=== PATIENT | female | born 1945 | race Caucasian/White ===

== ENCOUNTER 2022-10-02 14:36 | Outpatient (REF) | payer MEDICARE, SELFPAY ==
[2022-10-02 15:17] LABS: MANUAL DIFF FLAG NO
[2022-10-02 15:33] LABS: Basophils Absolute Auto 0.1 X10*3/uL (0.0-0.2); Basophils Percent Auto 0.7 % (0-2); Eosinophils Absolute Auto 0.2 X10*3/uL (0.0-0.4); Eosinophils Percent Auto 2.2 % (0-4); Hematocrit 42.2 % (37.0-47.0); Hemoglobin 13.7 g/dl (12.0-16.0); Imm Gran Abs Auto 0.02 X10*3/uL (0.00-0.03); Imm Gran Pct Auto 0.3 % (0.0-0.4); Lymphocytes Absolute Auto 1.4 X10*3/uL (1.2-4.9); Lymphocytes Percent Auto 20.5 % (20-40); Mean Corpuscular HGB Conc 32.5 g/dl (31.0-35.0); Mean Corpuscular Hemoglobin 29.5 pg (27.0-33.0); Mean Corpuscular Volume 90.8 fL (80.0-98.0); Mean Platelet Volume 9.4 fL (9.4-12.3); Monocytes Absolute Auto 0.4 X10*3/uL (0.1-1.2); Monocytes Percent Auto 5.7 % (2-11); Neutrophils Absolute Auto 4.7 x10*3/uL (2.0-8.3); Neutrophils Percent Auto 70.6 % (45-73); Platelet Count 300 X10*3/uL (160-400); Red Blood Count 4.65 X10*6/uL (4.20-5.50); Red Cell Distribution Width 12.6 % (11.0-16.0); White Blood Count 6.7 X10*3/uL (4.8-10.8)
[2022-10-02 15:34] LABS: Appearance Urine Clear; Color Urine Yellow; Glucose Urine UA Negative (Negative); Leukocyte Esterase Urine Small (1+) (Negative); Nitrite Urine Negative (Negative); PH 5.5 (5.0-9.0); UMIC TRIGGER UA YES; Urine Blood Small (1+) (Negative); Urine Ketones Trace mg/dL (Negative); Urine Protein Negative (Neg-Trace)
[2022-10-02 15:53] LABS: Bacteria Urine None Seen (None Seen); Hyaline Casts Urine 0-2 /LPF (0-2); RBC Urine 0-2 /HPF (0-2); Squamous Epithelial Cell Urine 0-2 /HPF (0-2)
[2022-10-02 16:26] LABS: Alanine Aminotransferase 20 U/L (0-31); Albumin Level 4.8 g/dL (3.5-5.0); Alkaline Phosphatase 56 U/L (39-117); Anion Gap 17 (12-20); Aspartate Amino Transferase 23 U/L (5-31); Bilirubin Total 1.9 mg/dL (0.0-1.0); Blood Urea Nitrogen 19 mg/dL (9-16); Calcium 9.6 mg/dL (8.4-10.2); Carbon Dioxide 26 mmol/L (22-29); Chloride 100 mmol/L (96-108); Cholesterol 207 mg/dL; Estimated Glomerular Filt Rate > 60; Glucose Random 85 mg/dL (60-115); HDL Cholesterol 83 mg/dL; LDL Cholesterol Calculated 110 mg/dl; Potassium 3.8 mmol/L (3.3-5.1); Sodium 139 mmol/L (135-145); Triglycerides 74 mg/dL
[2022-10-02 16:40] LABS: Thyroid Stimulating Hormone 2.06 uIU/mL (0.32-4.0)
[2022-10-02 16:41] LABS: TSH reflex Free T4 2.08 uIU/mL (0.32-4.0)
[2022-10-02 16:55] LABS: Folate 11.2 ng/mL (> or = 4.0); Vitamin B12 701 pg/mL (200-900)
== END 2022-10-02 14:37 | disposition home or self-care (01) ==
LOC: HO.LAB 14:36
PROVIDERS: PCP Internal Medicine; Visit Provider Internal Medicine
DX: N30.10 Interstitial cystitis (chronic) without hematuria (principal); G62.9 Polyneuropathy, unspecified
CPT/HCPCS: 36415; 80053; 80061; 81001; 82607; 82746; 84443; 85025; 87086

== ENCOUNTER 2023-04-17 15:44 | Outpatient (AMB) | payer MEDICARE, SELFPAY ==
--- NOTE | 2023-04-17 15:57 | A.OFFPC_ITS ---
Vital Signs 04/17/23 16:03 Height 5 ft 4 in Weight 108 lb 4 oz BMI 18.6 BP 136/80 Blood Pressure Location Lt brachial Position Sitting Pulse 69 Pulse Source Pulse Oximeter Pulse Oximetry (%) 100 Oxygen Delivery Method Room Air Intake Visit Reasons: New Patient/ Neuropathy Allergies No Known Allergies Allergy (Verified 04/17/23 16:04) Medication List - Last Reconciled 04/17/23 by KIMBERLY Gusman [asvanced nerve support PO .qd] diphenhydramine HCl (Benadryl Allergy) 25 mg PO BEDTIME PRN ibuprofen (IBU-200) 200 mg PO Q6H PRN [PEA-500 PO .qd] Tobacco use date assessed: 04/17/23 Fall risk assessment: No Falls in past year Last assessed Fall Risk: 04/17/23 Dental Screening Dental Screen Date: 04/17/23 Did you have a dental visit in the last 12 months?: Yes Did you have a dental problem in the last 6 months where you did not have access to dental care?: No Was dental information given to patient?: Patient has dentist HPI New Patient/ Neuropathy HPI Details pt reports never having a colon screen. pt is interested in the cologuard, will order. Pt has a severe case of IC. She last saw her urologist approx 2 years ago (according to pt). Highly recommended she follows up with her urologist, pt had to leave the room several times to go to the bathroom. Pt reports after being diagnosed with IC approx 7 years ago, she developed neuropathy. unfortunately, pt was not able to stay for full exam and questions, due to IC flare. will order emg.neuropathy testing. Pt does reports intermittent lower back pain, but denies shooting pains down her BLE from her back. NOTE: pt reported last seeing a PCP last year. [facility] Medical History (Updated 04/17/23 @ 16:59 by KIMBERLY Gusman) Endometriosis Surgical History History of appendectomy Social History Housing: House Alcohol intake: never Patient Tobacco Use Status: Never used Tobacco e-Cigarette/Vaping Use: Never Used Second Hand Smoke Exposure: No Current occupational status: retired Cognitive needs: No Hearing needs: No Vision needs: No Questionnaire PHQ-9 Over the last 2 weeks, how often have you been bothered by any of the following problems? 1. Little interest or pleasure in doing things: several days 2. Feeling down, depressed, or hopeless: not at all 3. Trouble falling or staying asleep, or sleeping too much: nearly every day 4. Feeling tired or having little energy: nearly every day 5. Poor appetite or overeating: not at all 6. Feeling bad about yourself - or that you are a failure or have let yourself or your family down: several days 7. Trouble concentrating on things, such as reading the newspaper or watching television: not at all 8. Moving or speaking so slowly that other people could have noticed. Or the opposite - being so fidgety or restless that you have been moving around a lot more than usual: not at all 9. Thoughts that you would be better off or of hurting yourself in some way: not at all Total score: 8 Depression Screening Interpretation: Negative 11274 - PHQ-9 Billing: Yes Source: Developed by Drs. Manjinder Perez, Jessica Caceres, Jeff Salvador and colleagues, with an educational cristhian from [employer]. Thrive Questionnaire Date Thrive assessed: 04/17/23 I am a: Patient What is your living situation today?: I have a steady place to live Within the past 12 months, did the food you bought not last and you didn't have the money to get more?: Never true Within the past 12 months, did you worry whether your food would run out before you got money to buy more?: Never true Do you have trouble paying for medicines?: Yes Do you have trouble getting transportation to medical appointments?: No Do you have trouble paying your heating and electricity bill?: No Do you have trouble taking care of your child, family member or friend?: No Do you have trouble with day-to-day activities such as bathing, preparing meals, shopping, managing finances, etc.?: Yes Are you currently unemployed and looking for a job?: No Are you interested in more education?: No Currently or been in a relationship where the following occur: no concerns reported JESSI-7 AMB Questionnaire JESSI-7 Date JESSI - 7 assessed: 04/17/23 Feeling nervous, anxious, or on edge: 1 = Several days Not being able to stop or control worryin = Several days Worrying too much about different things: 1 = Several days Trouble relaxin = Several days Being so restless that it is hard to sit still: 0 = Not at all Becoming easily annoyed or irritable: 0 = Not at all Feeling afraid as if something awful might happen: 0 = Not at all Total JESSI-7 score (0-4 normal; 5-9 mild; 10-14 moderate; 15-21 severe): 4 Source: Developed by Drs. Manjinder Perez, Jessica Caceres, Jeff Salvador and colleagues, with an educational cristhian from [employer]. JESSI-7 Assessment Billing JESSI-7 Assessment Tool: JESSI-7 Assessment 58337 Physical exam (Primary Care) Vital Signs: Last Vital Signs Pulse 69 04/17/23 16:03 BP 136/80 04/17/23 16:03 Pulse Ox 100 04/17/23 16:03 Oxygen Delivery Method Room Air 04/17/23 16:03 BMI result Body Mass Index 18.6 Tobacco/Smoking Status: Tobacco use Status Tobacco use date assessed 04/17/23 04/17/23 16:15 Patient Tobacco Use Status Never used Tobacco 04/17/23 16:15 e-Cigarette/Vaping Use Never Used 04/17/23 16:15 PHQ-9: PHQ-9 Score PHQ-9: Total score 8 04/17/23 16:27 Depression Screening Interpretation: Negative Thrive Assessment: Date of Thrive Assessment Date Thrive assessed 04/17/23 04/17/23 16:21 Currently or been in a relationship where the following occur: no concerns reported Const Other: skinny stature General: cooperative Orientation/consciousness: patient oriented x3 Resp Effort & Inspection: normal respiratory effort Auscultation: clear to auscultation bilaterally Cardio Rate: regular rate Rhythm: regular rhythm Heart sounds: S1 normal heart sound present and S2 normal heart sound present Back/Spine/Pelvis Other: no lower back pain with palpation of lumbar spine and transverse back Neuro Other: + sensation with use of monofilament General: patient oriented x3 Motor exam (neuro): 5/5 motor strength present throughout Extrem Other: no edema bilat Psych Appearance: grossly normal Mental Status: mental status grossly normal Speech and movement: Normal speech and movement present Affect: normal affect Attitude: cooperative Thought process: Normal thought process present Thought content: Normal thought content present Insight: Good insight present (Psych) Judgement: Good judgement present (Psych) Assessment and Plan Assessment & Plan (1) Screening, anemia, deficiency, iron: Code(s): Z13.0 - Encounter for screening for diseases of the blood and blood-forming organs and certain disorders involving the immune mechanism (2) Vitamin D deficiency: Code(s): E55.9 - Vitamin D deficiency, unspecified (3) Postmenopausal: Code(s): Z78.0 - Asymptomatic menopausal state (4) Lower extremity neuropathy: Code(s): G57.90 - Unspecified mononeuropathy of unspecified lower limb Orders: Orders Comprehensive Roberts. Panel Fast Today Z13.220 - Encounter for screening for lipoid disorders, Z13.29 - Encounter for screening for other suspected endocrine disorder Lipid Panel Today Z13.220 - Encounter for screening for lipoid disorders, Z13.29 - Encounter for screening for other suspected endocrine disorder TSH reflex Free T4 Today Z13.220 - Encounter for screening for lipoid disorders, Z13.29 - Encounter for screening for other suspected endocrine disorder Complete Blood Count Auto Diff Today Z13.0 - Encounter for screening for diseases of the blood and blood-forming organs and certain disorders involving the immune mechanism UA CC w/rflx Micro + Cult Today Z13.220 - Encounter for screening for lipoid disorders, Z13.29 - Encounter for screening for other suspected endocrine disorder Vitamin D 25-OH Total Today E55.9 - Vitamin D deficiency, unspecified XR DEXA axial skeleton Today Z78.0 - Asymptomatic menopausal state MM screening mammo BI Today Z12.31 - Encounter for screening mammogram for malignant neoplasm of breast NE electromyogram (EMG) Today G57.90 - Unspecified mononeuropathy of unspecified lower limb NE nerve conduction velocity Today G57.90 - Unspecified mononeuropathy of unspecified lower limb Vitamin B12 and Folate Today G57.90 - Unspecified mononeuropathy of unspecified lower limb Vitamin B6 Today G57.90 - Unspecified mononeuropathy of unspecified lower limb Protein Electrophoresis, Serum Today G57.90 - Unspecified mononeuropathy of unspecified lower limb Immunofixation Pnl, Serum Today G57.90 - Unspecified mononeuropathy of unspecified lower limb Referrals Cologuard Test Z12.11 - Encounter for screening for malignant neoplasm of colon, Z12.12 - Encounter for screening for malignant neoplasm of rectum Coding Level of Care Code New Pt Level 3 (44656) Diagnoses Screening, anemia, deficiency, iron Z13.0 Vitamin D deficiency E55.9 Postmenopausal Z78.0 Lower extremity neuropathy G57.90 Additional Codes JESSI-7 Assessment Billing - JESSI-7 Assessment Tool: JESSI-7 Assessment 20660 ([id number])
[2023-04-17 16:03] VITALS: BP 136/80; PULSE 69; O2SAT 100; BMI 18.6
== END 2023-04-17 17:08 | disposition home or self-care (01) ==
PROVIDERS: Visit Provider Nurse Practitioner Family
DX: Z13.0 Encounter for screening for diseases of the blood and blood-forming organs and certain disorders involving the immune mechanism (principal); E55.9 Vitamin D deficiency, unspecified; Z78.0 Asymptomatic menopausal state; G57.90 Unspecified mononeuropathy of unspecified lower limb
CPT/HCPCS: 99203

== ENCOUNTER 2023-05-06 12:38 | Outpatient (REF) | payer MEDICARE, SELFPAY ==
[2023-05-06 16:00] LABS: MANUAL DIFF FLAG NO
[2023-05-06 16:07] LABS: Basophils Percent Auto 0.6 % (0-2); Eosinophils Absolute Auto 0.2 X10*3/uL (0.0-0.4); Eosinophils Percent Auto 3.1 % (0-4); Hematocrit 42.8 % (37.0-47.0); Hemoglobin 13.9 g/dl (12.0-16.0); Imm Gran Abs Auto 0.02 X10*3/uL (0.00-0.03); Imm Gran Pct Auto 0.3 % (0.0-0.4); Lymphocytes Absolute Auto 1.7 X10*3/uL (1.2-4.9); Mean Corpuscular HGB Conc 32.5 g/dl (31.0-35.0); Mean Corpuscular Hemoglobin 29.8 pg (27.0-33.0); Mean Corpuscular Volume 91.8 fL (80.0-98.0); Mean Platelet Volume 10.2 fL (9.4-12.3); Monocytes Absolute Auto 0.4 X10*3/uL (0.1-1.2); Monocytes Percent Auto 6.3 % (2-11); Neutrophils Absolute Auto 4.1 x10*3/uL (2.0-8.3); Neutrophils Percent Auto 63.7 % (45-73); Platelet Count 308 X10*3/uL (160-400); Red Blood Count 4.66 X10*6/uL (4.20-5.50); White Blood Count 6.4 X10*3/uL (4.8-10.8)
[2023-05-06 16:36] LABS: Alanine Aminotransferase 18 U/L (0-31); Albumin Level 4.7 g/dL (3.5-5.0); Alkaline Phosphatase 44 U/L (39-117); Anion Gap 13 (12-20); Aspartate Amino Transferase 21 U/L (5-31); Bilirubin Total 1.4 mg/dL (0.0-1.0); Blood Urea Nitrogen 17 mg/dL (9-16); Calcium 9.7 mg/dL (8.4-10.2); Carbon Dioxide 25 mmol/L (22-29); Chloride 105 mmol/L (96-108); Cholesterol 220 mg/dL (<200); Estimated Glomerular Filt Rate > 60; Glucose Fasting 85 mg/dL (60-99); HDL Cholesterol 85 mg/dL (>40); LDL Cholesterol Calculated 121 mg/dL (<100); Sodium 139 mmol/L (135-145); Total Protein 7.1 g/dL (6.5-8.0); Triglycerides 70 mg/dL (<150)
[2023-05-06 16:46] LABS: TSH reflex Free T4 2.37 uIU/mL (0.32-4.0); Vitamin D 25-OH Total 57.6 ng/mL (>30)
[2023-05-06 16:56] LABS: Folate 8.6 ng/mL (> or = 4.0); Vitamin B12 672 pg/mL (200-900)
[2023-05-09 10:57] LABS: Prot Elec - Albumin 4.9 g/dL (3.8-4.8); Prot Elec - Alpha1 0.3 g/dL (0.2-0.3); Prot Elec - Alpha2 0.7 g/dL (0.5-0.9); Prot Elec - Beta 1 0.5 g/dL (0.4-0.6); Prot Elec - Beta 2 0.3 g/dL (0.2-0.5); Prot Elec - Gamma 0.7 g/dL (0.8-1.7); Prot Elec - Total Protein 7.3 g/dL (6.1-8.1)
[2023-05-14 09:23] LABS: IgA 67 mg/dL (70-320); IgG 776 mg/dL (600-1540); IgM 48 mg/dL (50-300)
== END 2023-05-06 12:39 | disposition home or self-care (01) ==
LOC: HO.HMGCLDS 12:38
PROVIDERS: PCP Nurse Practitioner Family; Visit Provider Nurse Practitioner Family
DX: Z13.220 Encounter for screening for lipoid disorders (principal); Z13.29 Encounter for screening for other suspected endocrine disorder; Z13.0 Encounter for screening for diseases of the blood and blood-forming organs and certain disorders involving the immune mechanism; E55.9 Vitamin D deficiency, unspecified; G57.90 Unspecified mononeuropathy of unspecified lower limb; R63.4 Abnormal weight loss; E78.5 Hyperlipidemia, unspecified
CPT/HCPCS: 36415; 80053; 80061; 82306; 82607; 82746; 82784; 84165; 84207; 84443; 85025; 86334

== ENCOUNTER 2023-05-07 13:47 | Outpatient (REF) | payer MEDICARE, SELFPAY ==
[2023-05-07 16:27] LABS: Appearance Urine Clear; Color Urine Yellow; Glucose Urine UA Negative (Negative); Leukocyte Esterase Urine Moderate (2+) (Negative); Nitrite Urine Negative (Negative); PH 6.5 (5.0-9.0); Specific Gravity - Urine <= 1.005 (1.005-1.025); UMIC TRIGGER UACC YES; Urine Blood Negative (Negative); Urine Ketones Negative (Negative); Urine Protein Negative (Neg-Trace)
[2023-05-07 16:30] LABS: Bacteria Urine None Seen (None Seen); Hyaline Casts Urine 0-2 /LPF (0-2); RBC Urine 0-2 /HPF (0-2); Squamous Epithelial Cell Urine 0-2 /HPF (0-2); UACC Culture Trigger YES
[2023-05-12 14:33] LABS: Vitamin B6 90.7 ng/mL (2.1-21.7)
== END 2023-05-07 13:48 | disposition home or self-care (01) ==
LOC: HO.HMGCLDS 13:47
PROVIDERS: PCP Nurse Practitioner Family; Visit Provider Nurse Practitioner Family
DX: G57.90 Unspecified mononeuropathy of unspecified lower limb (principal); R82.90 Unspecified abnormal findings in urine
CPT/HCPCS: 36415; 81001; 84207; 87086

== ENCOUNTER 2023-05-14 13:59 | Outpatient (REF) | payer MEDICARE, SELFPAY ==
--- NOTE | ~2023-05-14 | MM_ITS ---
EXAMINATION: MM SCREENING DIGITAL BREAST TOMOSYNTHESIS, BILATERAL CLINICAL INFORMATION: Screening. Asymptomatic. COMPARISON: Mammography: 11/27/2016, 06/13/2015, 04/02/2014, 03/29/2014, 11/06/2012, and dating back to 2008. ([facility] [place]) TECHNIQUE: Digital breast tomosynthesis is performed in both the craniocaudal and mediolateral oblique views along with computer-aided detection (CAD). Synthesized 2D images are generated from the tomosynthesis. FINDINGS: There are scattered areas of fibroglandular density (ACR BI-RADS breast composition Category b). In the left breast, there is a focal asymmetry in the lower outer quadrant, middle one third, for which diagnostic views are recommended including spot compression 3-D views in the CC, MLO projections, as well as a full-field left mediolateral view. Ultrasound should be scheduled should the finding persist. Otherwise, no suspicious findings noted in the right breast. MM/MM tomosynthesis screening BI IMPRESSION: Focal asymmetry in left breast lower outer quadrant as detailed, for which diagnostic views are recommended as described above. No suspicious finding in the right breast. ASSESSMENT: BI-RADS BI-RADS 0 - Incomplete: Needs additional Imaging. RECOMMENDATION: 1. Additional views of the left breast. 2. Targeted left ultrasound if warranted after review of the additional views. 3. Radiology department staff will contact the patient for additional imaging. Additional Imaging required This examination should not preclude the clinical evaluation of a suspicious palpable abnormality.
--- NOTE | ~2023-05-14 | MM_ITS ---
EXAMINATION: BONE DENSITOMETRY CLINICAL INDICATION: Asymptomatic menopausal state. COMPARISON: Baseline BD dated 11/06/2012. TECHNIQUE: Using a [employer] DXA System (software version: 13.1) manufactured by [employer], dual-energy x-ray absorptiometry was performed of the lumbar spine and left hip. The images are of good technical quality. Summary results are attached. FINDINGS: LEFT FEMUR, NECK: Current: BMD 0.682 g/cm2, Z-score -0.2, T-score -2.6, osteoporosis. Baseline: BMD 0.899 g/cm2. LEFT FEMUR, TOTAL: Current: BMD 0.620 g/cm2, Z-score -0.8, T-score -3.1, osteoporosis, 29.1% decrease from baseline (<5% change is not significant). Baseline: BMD 0.875 g/cm2. AP SPINE L1-L4 (excluding L2): The data of L1-L4 has been changed to exclude the L2 vertebral body, because degenerative sclerosis at this level may cause overestimation of lumbar spine density. Current: BMD 1.090 g/cm2, Z-score 1.7, T-score -0.7, normal, 5.0% increase from baseline (<5% change is not significant). Baseline: BMD 1.038 g/cm2. IDENTIFIED RISK FACTORS: Low body weight, low calcium intake, menopause, left oophorectomy. HISTORY OF FRACTURE: None listed. MEDICATIONS: Calcium supplements or multivitamin, vitamin D. MM/XR DEXA axial skeleton IMPRESSION: 1. DIAGNOSIS: Osteoporosis based on the lowest T-score value of -3.1 in the total femur applying World Health Organization criteria. 2. 10-YEAR FRACTURE RISK PREDICTION, FRAX: According to the guidelines, FRAX calculation should only be performed on patients in the osteopenia bone density category. Therefore, FRAX was not performed on this patient. 3. Treatment Recommendations: NOF guidelines recommend consideration for treatment in postmenopausal women and men age 50 and older presenting with the following: -A hip or vertebral (clinical or morphometric) fracture. -T-score less than or equal to -2.5 at the femoral neck or spine after appropriate evaluation to exclude secondary causes. -Low bone mass at the hip or spine and a 10-year fracture probability by FRAX of greater than or equal to 3% for hip fracture or greater than or equal to 20% for major osteoporotic fracture based on the [place] adapted WHO algorithm. 4. Other Recommendations: All treatment decisions require clinical judgment and consideration of individual patient factors, including patient preferences, comorbidities, previous drug use, risk factors not captured in the FRAX model (e.g. frailty, falls, vitamin D deficiency, increased bone turnover, interval significant decline in bone density) and possible under or overestimation of fracture risk by FRAX. Additional medical evaluation for secondary cause of low bone mineral density may be appropriate. FUTURE SCAN RECOMMENDATION: People with diagnosed cases of osteoporosis or at high risk for fracture should have regular bone mineral density tests. For patients eligible for Medicare, routine testing is allowed once every 2 years. The testing frequency can be increased to one year for patients who have rapidly progressing disease, those who are receiving or discontinuing medical therapy to restore bone mass, or have additional risk factors.
== END 2023-05-14 14:00 | disposition home or self-care (01) ==
LOC: HO.MAMMO 13:59
PROVIDERS: PCP Nurse Practitioner Family; Visit Provider Nurse Practitioner Family
DX: Z12.31 Encounter for screening mammogram for malignant neoplasm of breast (principal); Z13.820 Encounter for screening for osteoporosis; Z78.0 Asymptomatic menopausal state
CPT/HCPCS: 77063; 77067; 77080

== ENCOUNTER → 2023-05-14 15:00 | Outpatient (BNV) | payer MEDICARE, SELFPAY | PROVIDERS: PCP Nurse Practitioner Family; Visit Provider Radiology Diagnostic Radiology | DX: Z12.31 Encounter for screening mammogram for malignant neoplasm of breast (principal) | CPT/HCPCS: 77063; 77067; 77080 ==

== ENCOUNTER 2023-05-22 13:47 | Outpatient (REF) | payer MEDICARE, SELFPAY ==
--- NOTE | 2023-05-22 13:50 | EMG_ITS ---
Chief complaint: Chronic feet numbness, diagnosed neuropathy in the past, unknown etiology Reason for referral: Evaluate for neuropathy Referred by: Aaron Mcqueen NP Procedure done: Bilateral lower extremity NCS/EMG Precautions and/or limitations: None The limb temperature was monitored continuously and remained between 32-36 degrees C during the performance of the NCS. Nerve Conduction Studies Anti Sensory Summary Table ?Stim Site NR Onset (ms) Norm Onset (ms) Peak (ms) Norm Peak (ms) O-P Amp (?V) Norm O-P Amp Site1 Site2 Delta-0 (ms) Dist (cm) Javier (m/s) Norm Javier (m/s) Left Sural Anti Sensory (Lat Mall) Calf ? 3.3 4.2 <4.0 18.8 >5.0 Calf Lat Mall 3.3 14.0 42 Right Sural Anti Sensory (Lat Mall) Calf ? 3.0 3.8 <4.0 0.3 >5.0 Calf Lat Mall 3.0 14.0 47 Motor Summary Table ?Stim Site NR Onset (ms) Norm Onset (ms) O-P Amp (mV) Norm O-P Amp iAmp (mV) Amp (1st) (%) Site1 Site2 Delta-0 (ms) Dist (cm) Javier (m/s) Norm Javier (m/s) Left Peroneal Motor (Ext Dig Brev) Ankle ? 4.5 <4.0 2.7 >2.5 3.6 100.0 Ankle Ext Dig Brev 4.5 0.0 B Fib ? 10.9 2.8 3.5 103.7 B Fib Ankle 6.4 31.0 48 >40 Poplt ? 12.3 2.6 3.2 96.3 Poplt B Fib 1.4 4.0 29 >40 Right Peroneal Motor (Ext Dig Brev) Ankle ? 4.5 <4.0 2.7 >2.5 3.5 100.0 Ankle Ext Dig Brev 4.5 0.0 B Fib ? 12.3 2.8 3.6 103.7 B Fib Ankle 7.8 31.5 40 >40 Poplt ? 12.7 2.8 3.6 103.7 Poplt B Fib 0.4 4.0 100 >40 Left Tibial Motor (Abd George Brev) Ankle ? 4.0 <5 13.7 >2.5 19.0 100.0 Ankle Abd George Brev 4.0 0.0 Knee ? 11.7 5.4 7.9 39.4 Knee Ankle 7.7 34.0 44 >40 Right Tibial Motor (Abd George Brev) Ankle ? 3.6 <5 8.9 >2.5 11.9 100.0 Ankle Abd George Brev 3.6 0.0 Knee ? 14.4 6.0 7.4 67.4 Knee Ankle 10.8 40.0 37 >40 EMG ?Side Muscle Nerve Root Ins Act Fibs Psw Amp Dur Poly Recrt Int Pat Comment Right AbdHallucis MedPlantar S1-2 Nml Nml Nml Nml Nml 0 Nml Complete Right AntTibialis Dp Br Peron L4-5 Nml Nml Nml Nml Nml 0 Nml Complete Right PostTibialis Tibial L5, S1 Nml Nml Nml Nml Nml 0 Nml Complete Right MedGastroc Tibial S1-2 Nml Nml Nml Nml Nml 0 Nml Complete Right VastusMed Femoral L2-4 Nml Nml Nml Nml Nml 0 Nml Complete Left AbdHallucis MedPlantar S1-2 Nml Nml Nml Nml Nml 0 Nml Complete Left AntTibialis Dp Br Peron L4-5 Nml Nml Nml Nml Nml 0 Nml Complete Left PostTibialis Tibial L5, S1 Nml Nml Nml Nml Nml 0 Nml Complete Left MedGastroc Tibial S1-2 Nml Nml Nml Nml Nml 0 Nml Complete Left VastusMed Femoral L2-4 Nml Nml Nml Nml Nml 0 Nml Complete FINDINGS: Right peroneal nerve showed prolonged distal latency, normal amplitude and normal conduction velocity. Right tibial nerve showed normal distal latency, normal amplitude and slow conduction velocity. Left peroneal nerve showed prolonged distal latency, normal amplitude and slow conduction velocity across the fibula. Right sural showed normal peak latency but small amplitude. Left sural showed prolonged peak latency. All other nerves tested were within normal. Concentric needle EMG was performed in selected muscles of the bilateral lower extremity. Study did not reveal signs of electric abnormalities as shown in the table below. IMPRESSION: 1. This is an abnormal study. 2. 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 3. There is no electrodiagnostic evidence for lumbosacral plexopathy, or lumbar radiculopathy. Thank you for your kind referral. Lali Forman MD, TALIA Board Certified, [place] [employer] and Rehabilitation (ABPMR) Board Certified, [place] Board of Electrodiagnostic Medicine (ABEM) CODIN [id number] x 2 MTDD
== END 2023-05-22 13:48 | disposition home or self-care (01) ==
LOC: HO.NEURO 13:47
PROVIDERS: PCP Nurse Practitioner Family; Referring Provider Nurse Practitioner Family; Visit Provider Internal Medicine
DX: G57.93 Unspecified mononeuropathy of bilateral lower limbs (principal)
CPT/HCPCS: 95886; 95909

== ENCOUNTER → 2023-05-22 13:50 | Outpatient (BNV) | payer MEDICARE, SELFPAY | PROVIDERS: PCP Nurse Practitioner Family; Referring Provider Nurse Practitioner Family; Visit Provider Physical Medicine & Rehabilitation | DX: G62.89 Other specified polyneuropathies (principal) | CPT/HCPCS: 95886; 95909 ==

== ENCOUNTER → 2023-06-04 13:39 | Outpatient (BNV) | payer MEDICARE, SELFPAY | PROVIDERS: PCP Nurse Practitioner Family; Visit Provider Internal Medicine | DX: D80.1 Nonfamilial hypogammaglobulinemia (principal) | CPT/HCPCS: 99204 ==

== ENCOUNTER 2023-06-18 14:29 | Outpatient (REF) | payer MEDICARE, SELFPAY | END 2023-06-18 14:30 | disposition home or self-care (01) | LOC: HO.MAMMO 14:29 | PROVIDERS: PCP Nurse Practitioner Family; Visit Provider Nurse Practitioner Family | DX: N64.89 Other specified disorders of breast (principal) | CPT/HCPCS: 76642; 77061; 77065 ==

== ENCOUNTER → 2023-06-18 15:00 | Outpatient (BNV) | payer MEDICARE, SELFPAY | PROVIDERS: PCP Nurse Practitioner Family; Visit Provider Radiology Diagnostic Radiology | DX: R92.312 Mammographic fatty tissue density, left breast (principal); R92.322 Mammographic fibroglandular density, left breast | CPT/HCPCS: 76642; 77061; 77065; G0279 ==

== ENCOUNTER 2023-08-19 13:58 | Outpatient (AMB) | payer MEDICARE, SELFPAY ==
--- NOTE | 2023-08-19 14:13 | MHC.PC.OV ---
Vital Signs 08/19/23 14:15 Height 5 ft 4 in Weight 108 lb BMI 18.5 BP 110/72 Blood Pressure Location Rt brachial Pulse 71 Pulse Source Pulse Oximeter Pulse Oximetry (%) 98 Oxygen Delivery Method Room Air Intake Visit Reasons: 4 Month follow up Allergies No Known Allergies Allergy (Verified 08/19/23 14:15) Tobacco use date assessed: 04/17/23 Fall risk assessment: 1 Fall in past year Last assessed Fall Risk: 08/19/23 HPI 4 Month follow up HPI Details Pt has a hx of IC. She reports doing well overall, seeing urology. She is interested in joining a support group for her IC as well. Pt reports ongoing neuropathy of her lower extremities, recommended she stop the vitamin B6 (toxic levels on blood work). Recommended alpha lipoic acid. Pt had recent EMG/nerve conduction testing which showed electrodiagnostic evidence for sensorimotor polyneuropathy, with both demyelinating and axonal features, no electrodiagnostic evidence for lumbosacral plexopathy, or lumbar radiculopathy. Already referred to neurology. Denies fever, chills, and dizziness. [facility] Medical History Endometriosis Surgical History History of left oophorectomy History of cholecystectomy History of appendectomy Family History Father Stomach cancer Mother Colon cancer Social History Household Members: None Housing: House Alcohol intake: never Patient Tobacco Use Status: Never used Tobacco e-Cigarette/Vaping Use: Never Used Second Hand Smoke Exposure: No service: No Current occupational status: retired Cognitive needs: No Hearing needs: No Vision needs: No Questionnaire Thrive Questionnaire Date Thrive assessed: 04/17/23 JESSI-7 AMB Questionnaire JESSI-7 Date JESSI - 7 assessed: 04/17/23 Source: Developed by Drs. Manjinder Perez, Jessica Caceres, Jeff Salvador and colleagues, with an educational cristhian from [employer]. Review of Systems Const Reports as per HPI Physical exam (Primary Care) Vital Signs: Last Vital Signs Pulse 71 08/19/23 14:15 BP 110/72 08/19/23 14:15 Pulse Ox 98 08/19/23 14:15 Oxygen Delivery Method Room Air 08/19/23 14:15 BMI result Body Mass Index 18.5 Tobacco/Smoking Status: Tobacco use Status Tobacco use date assessed 04/17/23 08/19/23 14:14 Patient Tobacco Use Status Never used Tobacco 08/19/23 14:14 e-Cigarette/Vaping Use Never Used 08/19/23 14:14 Thrive Assessment: Date of Thrive Assessment Date Thrive assessed 04/17/23 08/19/23 14:14 Const General: cooperative Orientation/consciousness: patient oriented x3 Resp Effort & Inspection: normal respiratory effort Auscultation: clear to auscultation bilaterally Cardio Rate: regular rate Rhythm: regular rhythm Heart sounds: S1 normal heart sound present and S2 normal heart sound present Neuro General: patient oriented x3 Extrem Other: warm, + dorsalis pedis pulses, no edema, + sensation with use of monofilament to bilat feet Psych Appearance: grossly normal Mental Status: mental status grossly normal Speech and movement: Normal speech and movement present Affect: normal affect Attitude: cooperative Thought process: Normal thought process present Thought content: Normal thought content present Insight: Good insight present (Psych) Judgement: Good judgement present (Psych) Immunizations pneumoc 20-giovanna conj-dip cr(PF) 0.5 mL IM syringe Performing Provider: KIMBERLY Gusman Performing Location: [facility] Administered by: LAMAR Esqueda on 08/19/23 15:01 Dose Route Admin Location Dispensed Lot Number Expiration Date [facility] Infusion Pharmacist 0.5 mL IM Left Deltoid 0.5 mL [id number] 04/07/24 4959-5684-66 [employer] VIS Given Date VIS Provided VIS Publication Date 08/19/23 Single Vaccine 21 Eligibility Eligibility Date Funding Source Not [facility] Eligible 08/19/23 Private Assessment and Plan Assessment & Plan (1) Interstitial cystitis: Code(s): N30.10 - Interstitial cystitis (chronic) without hematuria Plan: Continue to follow up with urology Plan The patient agreed to the use of a medical transcriptionist for this encounter. Scribed for KIMBERLY Montemayor by Maile Reynolds medical transcriptionist, on 08/19/2023 at 14:15 EST. Orders: Orders Pneumococcal 20 Immunization Today Z23 - Encounter for immunization Coding Level of Care Code Est Pt Level 3 (00945) Diagnoses Interstitial cystitis N30.10
[2023-08-19 14:15] VITALS: BP 110/72; PULSE 71; O2SAT 98; BMI 18.5
== END 2023-08-19 15:12 | disposition home or self-care (01) ==
PROVIDERS: PCP Internal Medicine; Visit Provider Nurse Practitioner Family
DX: N30.10 Interstitial cystitis (chronic) without hematuria (principal); Z23 Encounter for immunization
CPT/HCPCS: 90471; 90677; 99213

== ENCOUNTER 2024-02-19 13:54 | Outpatient (AMB) | payer MEDICARE, SELFPAY ==
[2024-02-19 13:56] VITALS: BP 116/64; PULSE 71; O2SAT 98; BMI 20.1
--- NOTE | 2024-02-19 13:56 | MHC.PC.OV ---
Vital Signs 02/19/24 13:56 Height 5 ft 4 in Weight 117 lb BMI 20.1 BP 116/64 Blood Pressure Location Lt brachial Position Sitting Pulse 71 Pulse Source Pulse Oximeter Pulse Oximetry (%) 98 Oxygen Delivery Method Room Air Intake Visit Reasons: 6 month follow up Intake Note: Pt is here today for 6 months follow up visit. Allergies No Known Allergies Allergy (Verified 02/19/24 14:01) Medication List - Last Reconciled 02/19/24 by KIMBERLY Gusman acetaminophen (Tylenol) 325 mg PO QID PRN Tobacco use date assessed: 02/19/24 Fall risk assessment: No Falls in past year Last assessed Fall Risk: 02/19/24 Dental Screening Dental Screen Date: 02/19/24 Did you have a dental visit in the last 12 months?: Yes Did you have a dental problem in the last 6 months where you did not have access to dental care?: No Was dental information given to patient?: Patient has dentist HPI 6 month follow up HPI Details Pt c/o fatigue. She reports feeling very tired throughout the day. Pt has a hx of vitamin D deficiency. Will order labs. Denies fever, chills, and dizziness. Pt reports that her pelvic pain related to IC has improved. [facility] Medical History Endometriosis Surgical History History of left oophorectomy History of cholecystectomy History of appendectomy Family History Father Stomach cancer Mother Colon cancer Substance use disorder Brother Substance use disorder Social History Household Members: None Housing: House Alcohol intake: never Patient Tobacco Use Status: Never used Tobacco e-Cigarette/Vaping Use: Never Used Second Hand Smoke Exposure: No service: No Current occupational status: retired Cognitive needs: No Hearing needs: No Vision needs: No Questionnaire PHQ-9 Over the last 2 weeks, how often have you been bothered by any of the following problems? 1. Little interest or pleasure in doing things: not at all 2. Feeling down, depressed, or hopeless: not at all 3. Trouble falling or staying asleep, or sleeping too much: several days 4. Feeling tired or having little energy: nearly every day 5. Poor appetite or overeating: not at all 6. Feeling bad about yourself - or that you are a failure or have let yourself or your family down: not at all 7. Trouble concentrating on things, such as reading the newspaper or watching television: several days 8. Moving or speaking so slowly that other people could have noticed. Or the opposite - being so fidgety or restless that you have been moving around a lot more than usual: not at all 9. Thoughts that you would be better off or of hurting yourself in some way: not at all Total score: 5 Depression Screening Interpretation: Negative Depression Screening Done: Yes Source: Developed by Drs. Manjinder Perez, Jessica Caceres, Jeff Salvador and colleagues, with an educational cristhian from [employer]. Thrive Questionnaire Date Thrive assessed: 02/19/24 I am a: Patient What is your living situation today?: I have a steady place to live Within the past 12 months, did the food you bought not last and you didn't have the money to get more?: Never true Within the past 12 months, did you worry whether your food would run out before you got money to buy more?: Never true Do you have trouble paying for medicines?: Yes Do you have trouble getting transportation to medical appointments?: No Do you have trouble paying your heating and electricity bill?: Yes Do you have trouble taking care of your child, family member or friend?: No Do you have trouble with day-to-day activities such as bathing, preparing meals, shopping, managing finances, etc.?: No Are you currently unemployed and looking for a job?: No Are you interested in more education?: No Please select the resources that you would like help with: Paying for medicine and Utilities THRIVE Score: 1 AUDIT C Alcohol Use Questionnaire (AUDIT-C) 1. How often do you have a drink containing alcohol?: Never 3. How often do you have six or more drinks on one occasion?: Never Total Score: 0 JESSI-7 AMB Questionnaire JESSI-7 Date JESSI - 7 assessed: 02/19/24 Feeling nervous, anxious, or on edge: 0 = Not at all Not being able to stop or control worryin = Not at all Worrying too much about different things: 0 = Not at all Trouble relaxin = Not at all Being so restless that it is hard to sit still: 0 = Not at all Becoming easily annoyed or irritable: 0 = Not at all Feeling afraid as if something awful might happen: 0 = Not at all Total JESSI-7 score (0-4 normal; 5-9 mild; 10-14 moderate; 15-21 severe): 0 Source: Developed by Drs. Manjinder Perez, Jessica Caceres, Jeff Salvador and colleagues, with an educational cristhian from [employer]. Review of Systems Const Reports as per HPI Physical exam (Primary Care) Vital Signs: Last Vital Signs Pulse 71 02/19/24 13:56 BP 116/64 02/19/24 13:56 Pulse Ox 98 02/19/24 13:56 Oxygen Delivery Method Room Air 02/19/24 13:56 BMI result Body Mass Index 20.1 Tobacco/Smoking Status: Tobacco use Status Tobacco use date assessed 02/19/24 02/19/24 14:06 Patient Tobacco Use Status Never used Tobacco 02/19/24 14:00 e-Cigarette/Vaping Use Never Used 02/19/24 14:00 PHQ-9: PHQ-9 Score PHQ-9: Total score 5 02/19/24 14:45 Depression Screening Interpretation: Negative Thrive Assessment: Date of Thrive Assessment Date Thrive assessed 02/19/24 02/19/24 14:45 Const General: cooperative Orientation/consciousness: patient oriented x3 Resp Effort & Inspection: normal respiratory effort Auscultation: clear to auscultation bilaterally Cardio Rate: regular rate Rhythm: regular rhythm Heart sounds: S1 normal heart sound present and S2 normal heart sound present Neuro General: patient oriented x3 Psych Appearance: grossly normal Mental Status: mental status grossly normal Speech and movement: Normal speech and movement present Affect: normal affect Attitude: cooperative Thought process: Normal thought process present Thought content: Normal thought content present Insight: Good insight present (Psych) Judgement: Good judgement present (Psych) Assessment and Plan Assessment & Plan (1) Fatigue: Code(s): R53.83 - Other fatigue Plan: Labs ordered (2) Vitamin D deficiency: Code(s): E55.9 - Vitamin D deficiency, unspecified Plan: Labs ordered Plan The patient agreed to the use of a biomedical equipment technician for this encounter. Scribed for GABRIELA Montemayor- by Maile Reynolds biomedical equipment technician, on 02/19/2024 at 14:15 EST. Orders: Orders Lipid Panel Today R53.83 - Other fatigue Vitamin D 25-OH Total Today E55.9 - Vitamin D deficiency, unspecified, R53.83 - Other fatigue Ferritin Today R53.83 - Other fatigue Complete Blood Count Auto Diff Today R53.83 - Other fatigue Comprehensive Lottie. Panel Fast Today R53.83 - Other fatigue TSH reflex Free T4 Today R53.83 - Other fatigue UA CC w/rflx Micro + Cult Today R53.83 - Other fatigue IRON PROFILE Today R53.83 - Other fatigue Vitamin B12 and Folate Today R53.83 - Other fatigue Coding Level of Care Code Est Pt Level 3 (94124) Diagnoses Fatigue R53.83 Vitamin D deficiency E55.9
== END 2024-02-19 14:48 | disposition home or self-care (01) ==
PROVIDERS: PCP Nurse Practitioner Family; Visit Provider Nurse Practitioner Family
DX: R53.83 Other fatigue (principal); E55.9 Vitamin D deficiency, unspecified
CPT/HCPCS: 99213

== ENCOUNTER 2024-04-16 09:26 | Outpatient (REF) | payer MEDICARE, SELFPAY ==
[2024-04-16 13:12] LABS: MANUAL DIFF FLAG NO
[2024-04-16 13:24] LABS: Basophils Absolute Auto 0.1 X10*3/uL (0.0-0.2); Basophils Percent Auto 0.9 % (0-2); Eosinophils Absolute Auto 0.2 X10*3/uL (0.0-0.4); Eosinophils Percent Auto 3.9 % (0-4); Hematocrit 41.7 % (37.0-47.0); Hemoglobin 13.7 g/dl (12.0-16.0); Imm Gran Abs Auto 0.01 X10*3/uL (0.00-0.03); Imm Gran Pct Auto 0.2 % (0.0-0.4); Lymphocytes Absolute Auto 1.6 X10*3/uL (1.2-4.9); Lymphocytes Percent Auto 29.2 % (20-40); Mean Corpuscular HGB Conc 32.9 g/dl (31.0-35.0); Mean Corpuscular Hemoglobin 29.7 pg (27.0-33.0); Mean Corpuscular Volume 90.5 fL (80.0-98.0); Mean Platelet Volume 10.3 fL (9.4-12.3); Monocytes Absolute Auto 0.4 X10*3/uL (0.1-1.2); Monocytes Percent Auto 7.2 % (2-11); Neutrophils Absolute Auto 3.3 x10*3/uL (2.0-8.3); Neutrophils Percent Auto 58.6 % (45-73); Platelet Count 283 X10*3/uL (160-400); Red Blood Count 4.61 X10*6/uL (4.20-5.50); Red Cell Distribution Width 13.3 % (11.0-16.0); White Blood Count 5.6 X10*3/uL (4.8-10.8)
[2024-04-16 13:49] LABS: Appearance Urine Clear; Color Urine Yellow; Glucose Urine UA Negative (Negative); Leukocyte Esterase Urine Moderate (2+) (Negative); Nitrite Urine Negative (Negative); Specific Gravity - Urine <= 1.005 (1.005-1.025); UMIC TRIGGER UACC YES; Urine Blood Negative (Negative); Urine Ketones Negative (Negative); Urine Protein Negative (Neg-Trace)
[2024-04-16 13:56] LABS: Bacteria Urine None Seen (None Seen); Hyaline Casts Urine 0-2 /LPF (0-2); RBC Urine 0-2 /HPF (0-2); UACC Culture Trigger YES
[2024-04-16 14:08] LABS: Alanine Aminotransferase 18 U/L (0-31); Albumin Level 4.4 g/dL (3.5-5.0); Alkaline Phosphatase 55 U/L (39-117); Anion Gap 13 (12-20); Aspartate Amino Transferase 20 U/L (5-31); Bilirubin Total 1.2 mg/dL (0.0-1.0); Blood Urea Nitrogen 17 mg/dL (9-16); Calcium 9.9 mg/dL (8.4-10.2); Carbon Dioxide 27 mmol/L (22-29); Chloride 107 mmol/L (96-108); Cholesterol 191 mg/dL (<200); Estimated Glomerular Filt Rate > 60; Glucose Fasting 84 mg/dL (60-99); HDL Cholesterol 77 mg/dL (>40); Iron 80 mcg/dL (30-160); LDL Cholesterol Calculated 101 mg/dL (<100); Percent Iron Saturation 27 % (15-50); Potassium 4.6 mmol/L (3.3-5.1); Sodium 142 mmol/L (135-145); Total Iron Binding Capacity 293 mcg/dL (228-428); Total Protein 6.9 g/dL (6.5-8.0); Triglycerides 69 mg/dL (<150); Unsaturated Iron Binding 213 ug/dL
[2024-04-16 14:13] LABS: Vitamin B12 593 pg/mL (200-900)
[2024-04-16 14:15] LABS: Ferritin 105 ng/mL (10-250); TSH reflex Free T4 3.37 uIU/mL (0.32-4.0); Vitamin D 25-OH Total 58.4 ng/mL (>30)
== END 2024-04-16 09:27 | disposition home or self-care (01) ==
LOC: HO.HMGCLDS 09:26
PROVIDERS: PCP Nurse Practitioner Family; Visit Provider Nurse Practitioner Family
DX: R53.83 Other fatigue (principal)
CPT/HCPCS: 36415; 80053; 80061; 81001; 82306; 82607; 82728; 82746; 83540; 84443; 85025; 87086

== ENCOUNTER 2024-07-08 09:45 | Outpatient (REF) | payer MEDICARE, SELFPAY ==
[2024-07-08 13:12] LABS: Appearance Urine Clear; Color Urine Yellow; Glucose Urine UA Negative (Negative); Leukocyte Esterase Urine Small (1+) (Negative); Nitrite Urine Negative (Negative); PH 6.5 (5.0-9.0); Specific Gravity - Urine 1.015 (1.005-1.025); UMIC TRIGGER UA YES; Urine Blood Trace (Negative); Urine Ketones Negative (Negative); Urine Protein Negative (Neg-Trace)
[2024-07-08 13:19] LABS: Bacteria Urine None Seen (None Seen); Hyaline Casts Urine 0-2 /LPF (0-2); RBC Urine 0-2 /HPF (0-2); Squamous Epithelial Cell Urine 0-2 /HPF (0-2)
== END 2024-07-08 09:46 | disposition home or self-care (01) ==
LOC: HO.HMGCLNP 09:45
PROVIDERS: PCP Nurse Practitioner Family; Visit Provider Nurse Practitioner Family
DX: R30.0 Dysuria (principal)
CPT/HCPCS: 81001; 87086

== ENCOUNTER 2025-02-24 11:31 | Emergency (ER) | payer MEDICARE, SELFPAY ==
[2025-02-24] VITALS (7 sets, daily range): BP systolic 133–188; BP diastolic 71–88; PULSE 66–77; RESP 16–18; TEMP 36.6–36.8; O2SAT 95–100; BMI 20.6
--- NOTE | ~2025-02-24 | XR_ITS ---
EXAMINATION: XR CHEST CLINICAL INFORMATION: Palpitation COMPARISON: None available. TECHNIQUE: Frontal view of the chest was obtained. FINDINGS: No consolidation, pleural effusion or pneumothorax. Cardiomediastinal silhouette size is normal. Calcified plaque aortic arch. Multilevel thoracic and upper lumbar spondylosis. There is a radiopaque structure in the epigastric region not included [id number]. Osteopenia versus osteoporosis. Degenerative changes in the shoulders. XR/XR chest 1V IMPRESSION: No acute airspace disease. Electronically signed by: Kel Johnson MD 02/24/2025 12:07 PM EDT
--- NOTE | 2025-02-24 11:51 | ECG_ITS ---
Test Reason : palpitations Blood Pressure : */* mmHG Vent. Rate : 67 BPM Atrial Rate : 67 BPM P-R Int : 146 ms QRS Dur : 78 ms QT Int : 410 ms P-R-T Axes : 62 36 28 degrees QTcB Int : 433 ms Sinus rhythm with Premature atrial complexes Otherwise normal ECG When compared with ECG of 30-Mar-2009 08:38, Premature atrial complexes Present Referred By: Bry Vázquez Electronically Signed By: El Silva
--- NOTE | 2025-02-24 11:52 | ED_ITS ---
HPI - General Adult General Chief complaint: Arrhythmia/Palpitations Stated complaint: Weakness, palpitations x3 days Time Seen by Provider: 02/24/25 11:43 Source: patient Mode of arrival: ambulatory Limitations: no limitations History of Present Illness ED Provider: DR. Vázquez HPI narrative: A 79-year-old female history of interstitial cystitis x7 years, and chronic fatigue and generalized weakness presented today for evaluation of palpitations that happened 3 days ago while she was cooking lasted for few minutes patient felt diaphoretic and near syncopal episode patient managed to rest on the couch with resolution of or her symptoms patient attributed her symptoms to a family stress, patient since then did not feel right, no lower extremity swelling, no prolonged immobilization, no recent travel, no recent fall or trauma, patient felt palpitation this morning with no diaphoresis or syncopal feeling. No urinary symptoms, no frequency urination, no dysuria, no hematuria, no abdominal pain. Patient is nonsmoker, no history of HTN, no history of diabetes, no history of high cholesterol, patient lives home by herself. Intra-abdominal surgical history significant for cholecystectomy, appendectomy, left oophorectomy. Related Data Home Medications ?Medication ?Instructions ?Recorded ?Confirmed acetaminophen 325 mg capsule 325 mg PO QID PRN 3 02/19/24 (Tylenol) Previous Rx's ?Medication ?Instructions ?Recorded cephalexin 500 mg capsule 500 mg PO BID 3 days #6 caps 04/19/24 Allergies Allergy/AdvReac Type Severity Reaction Status Date / Time No Known Allergies Allergy Verified 02/24/25 11:48 Review of Systems 2 Review of Systems: All other systems are reviewed and are negative Constitutional: Reports as per HPI and Reports no additional constitutional complaints Eyes: Reports as per HPI and Reports no additional eye complaints Reports system reviewed and no additional complaints, except as documented Cardiovascular: Reports as per HPI and Reports no additional cardiovascular complaints Respiratory: Reports as per HPI and Reports no additional respiratory complaints Gastrointestinal: Reports as per HPI and Reports no additional gastrointestinal complaints Genitourinary: Reports no additional female genitourinary complaints Musculoskeletal: Reports no additional musculoskeletal complaints Skin/Breast: Reports system reviewed and no additional complaints, except as docu Psychiatric: Reports no additional psychiatric complaints Endocrine: Reports no additional endocrine complaints Hematologic/Lymphatic: Reports no additional hematologic/lymphatic complaints Allergic/Immunologic: Reports no additional allergic/immunologic complaints Reports system reviewed and no additional complaints, except as documented and Reports Abnormal speech present [facility] Past Medical History Medical History Endometriosis Surgical History History of left oophorectomy History of cholecystectomy History of appendectomy Family History Family History Father Stomach cancer Mother Colon cancer Substance use disorder Brother Substance use disorder Social History Social History Household Members: None Housing: House Alcohol intake: never Patient Tobacco Use Status: Never used Tobacco Smoked in Last 30 Days: No e-Cigarette/Vaping Use: Never Used Second Hand Smoke Exposure: No Use of substances other than those prescribed or required for medical reasons: No Advance Directives: No Advance Directives Information Provided: Yes service: No Current occupational status: retired Cognitive needs: No Hearing needs: No Vision needs: No Physical Exam ED Vital Signs: Vital Signs - 24 hr 02/24/25 11:47 02/24/25 12:41 02/24/25 12:43 Temperature 98.2 F Pulse Rate 71 66 77 Respiratory Rate 18 Blood Pressure 188/88 H 140/72 H 155/83 H Pulse Oximetry 100 Oxygen Delivery Method Room Air 02/24/25 12:43 02/24/25 12:45 Temperature 97.9 F Pulse Rate 72 Respiratory Rate 16 Blood Pressure 133/84 Pulse Oximetry 99 Oxygen Delivery Method Room Air BMI result Body Mass Index 20.6 Vital signs have been reviewed and appear to be correct. Blood pressure elevated. Heart rate normal. Respiratory rate normal. Temperature normal. Oxygen saturation normal. Appearance: Alert. Oriented X3. No acute distress. Head: Normal external exam. Normocephalic. Atraumatic. No Crowder signs noted. No raccoon eyes noted Eyes: PERRLA. EOMI. Conjunctiva and sclera normal. Eyelids normal. ENT: TM's Normal. Pharynx normal. Uvula midline. Moist mucous membranes. No trismus noted. No drooling noted. No muffled voice noted. Neck: Normal inspection. Neck supple. FROM. No adenopathy. Thyroid Normal. No meningeal signs. No neck mass noted. CVS: Normal heart rate and rhythm. Heart sound normal. No murmurs noted. Pulses normal throughout. Respiratory: No respiratory distress. Painless inspiration. Breath sounds normal. No wheezes/rales/rhonchi noted. Chest nontender. No accessory muscle usage noted or decreased air movement noted. Abdomen: Soft and nontender. Bowel sounds normal in all 4 quadrants. No distention noted. No organomegaly noted. No visible injury noted. Back: No CVA tenderness. Full range of motion noted. Skin: Skin warm and dry. Normal skin color. Normal skin turgor. No rashes/lesions/lacerations noted. Extremities: No lower extremity edema. Extremities exhibit normal range of motion. Extremities nontender. Neuro: Oriented X 3. Cranial nerve exam: II-XII are grossly intact No motor deficit. No sensory deficit. Reflexes normal. Course Reevaluation(s) Reevaluation #1: A 79-year-old female came in for evaluation of palpitation and generalized weakness and fatigue. Patient was chronic interstitial cystitis currently have no urinary symptoms no indication to start antibiotic patient was instructed to drink plenty of fluids. Patient has been monitored in the emergency department with no apparent dysrhythmia, cardiac enzymes are unremarkable x2. A D-dimer is with a negative value and patient with low risk for pulmonary embolism. Patient admit to stressful events running in the family that make the patient stressed out which may attributed to patient's symptoms. Time: 16:10 Medical Decision Making Differential Diagnosis Differential Diagnoses: The differential diagnosis associated with the presentation includes (ACS, pulmonary embolism, pneumonia, pneumothorax, pleural effusions, UTI, anxiety, stress.) Admission/Observation Consideration of admission/observation: Escalation of care including admission/observation considered Lab Data MDM Lab Attestation statement: I reviewed the patient's lab results. 02/24/25 12:27 02/24/25 12:27 Labs: Lab Results 02/24/25 02/24/25 Range/Units 12:27 12:32 WBC 7.1 (4.8-10.8) X10*3/uL RBC 4.45 (4.20-5.50) X10*6/uL Hgb 13.1 (12.0-16.0) g/dl Hct 38.7 (37.0-47.0) % MCV 87.0 (80.0-98.0) fL MCH 29.4 (27.0-33.0) pg MCHC 33.9 (31.0-35.0) g/dl RDW 12.9 (11.0-16.0) % Plt Count 293 (160-400) X10*3/uL MPV 9.8 (9.4-12.3) fL Immature Gran % (Auto) 0.1 (0.0-0.4) % Neut % (Auto) 71.5 (45-73) % Lymph % (Auto) 19.9 L (20-40) % [place] % (Auto) 6.2 (2-11) % Eos % (Auto) 1.7 (0-4) % Baso % (Auto) 0.6 (0-2) % Lymph # (Auto) 1.4 (1.2-4.9) X10*3/uL [place] # (Auto) 0.4 (0.1-1.2) X10*3/uL Eos # (Auto) 0.1 (0.0-0.4) X10*3/uL Baso # (Auto) 0.0 (0.0-0.2) X10*3/uL Abs Immat Gran (auto) 0.01 (0.00-0.03) X10*3/uL Absolute Neuts (auto) 5.0 (2.0-8.3) x10*3/uL Absolute Nucleated RBC 0.000 (0.0-0.012) X10*3/uL Nucleated RBC % (auto) 0.0 (0.0-0.2) /100WBC D-Dimer High Sensitivty 199 NG/ML Sodium 143 (135-145) mmol/L Potassium 4.5 (3.3-5.1) mmol/L Chloride 111 H (96-108) mmol/L Carbon Dioxide 23 (22-29) mmol/L Anion Gap 14 (12-20) BUN 20 H (9-16) mg/dL Creatinine 0.68 (0.5-1.4) mg/dL Estim Creat Clear Calc 57.7 Estimated GFR > 60 Random Glucose 102 (60-115) mg/dL Calcium 9.4 (8.4-10.2) mg/dL Total Bilirubin 1.0 (0.0-1.0) mg/dL Direct Bilirubin 0.3 (0.0-0.5) mg/dL AST 27 (5-31) U/L ALT 19 (0-31) U/L Alkaline Phosphatase 63 (39-117) U/L Troponin I High Sens < 2.7 (<3.5-17.0) ng/L B-Natriuretic Peptide 46 (<100) pg/mL Total Protein 6.8 (6.5-8.0) g/dL Albumin 4.4 (3.5-5.0) g/dL Lipase 25 (8-78) U/L Urine Color Straw Urine Appearance Clear Urine pH 6.0 (5.0-9.0) Ur Specific [place] <= 1.005 (1.005-1.025) Urine Protein Negative (Neg-Trace) mg/dL Urine Glucose (UA) Negative (Negative) mg/dL Urine Ketones Negative (Negative) mg/dL Urine Blood Trace (Negative) Urine Nitrite Negative (Negative) Ur Leukocyte Esterase Moderate (2+) H (Negative) Urine RBC 0-2 (0-2) /HPF Urine WBC 11-20 H (0-5) /HPF Ur Squamous Epith Cells 0-2 (0-2) /HPF Urine Bacteria None Seen (None Seen) Hyaline Casts 3-5 (0-2) /LPF Influenza Type A (PCR) NEGATIVE (Negative) Influenza Type B (PCR) NEGATIVE (Negative) RSV RNA Qual (PCR) NEGATIVE (Negative) SARS-CoV-2 RNA (RT-PCR) NEGATIVE (Negative) Independent Interpretation I performed an independent interpretation of an: Plain X-Ray (Chest: No acute airspace disease.) Radiology Impression Discussion of test interpretation with radiology: I have reviewed the radiologist's reading. Discharge Plan Discharge Clinical Impression: Palpitations Patient Disposition: Home, Self-Care Instructions: Heart Palpitations (ED) Prescriptions: No Action cephalexin 500 mg capsule 500 mg PO BID 3 Days Qty: 6 0RF acetaminophen [Tylenol] 325 mg capsule 325 mg PO QID PRN Referrals: El Silva MD [Physician, Cardiology] Print Language: Belarusian
[2025-02-24 12:51] LABS: MANUAL DIFF FLAG NO
[2025-02-24 12:54] LABS: Basophils Percent Auto 0.6 % (0-2); Eosinophils Absolute Auto 0.1 X10*3/uL (0.0-0.4); Eosinophils Percent Auto 1.7 % (0-4); Hematocrit 38.7 % (37.0-47.0); Hemoglobin 13.1 g/dl (12.0-16.0); Imm Gran Abs Auto 0.01 X10*3/uL (0.00-0.03); Imm Gran Pct Auto 0.1 % (0.0-0.4); Lymphocytes Absolute Auto 1.4 X10*3/uL (1.2-4.9); Lymphocytes Percent Auto 19.9 % (20-40); Mean Corpuscular HGB Conc 33.9 g/dl (31.0-35.0); Mean Corpuscular Hemoglobin 29.4 pg (27.0-33.0); Mean Platelet Volume 9.8 fL (9.4-12.3); Monocytes Absolute Auto 0.4 X10*3/uL (0.1-1.2); Monocytes Percent Auto 6.2 % (2-11); Neutrophils Percent Auto 71.5 % (45-73); Platelet Count 293 X10*3/uL (160-400); Red Blood Count 4.45 X10*6/uL (4.20-5.50); Red Cell Distribution Width 12.9 % (11.0-16.0); White Blood Count 7.1 X10*3/uL (4.8-10.8)
[2025-02-24 13:02] LABS: Appearance Urine Clear; Color Urine Straw; Glucose Urine UA Negative (Negative); Leukocyte Esterase Urine Moderate (2+) (Negative); Nitrite Urine Negative (Negative); Specific Gravity - Urine <= 1.005 (1.005-1.025); UMIC TRIGGER UACC YES; Urine Blood Trace (Negative); Urine Ketones Negative (Negative); Urine Protein Negative (Neg-Trace)
[2025-02-24 13:07] LABS: Alanine Aminotransferase 19 U/L (0-31); Albumin Level 4.4 g/dL (3.5-5.0); Alkaline Phosphatase 63 U/L (39-117); Anion Gap 14 (12-20); Aspartate Amino Transferase 27 U/L (5-31); Bilirubin Direct 0.3 mg/dL (0.0-0.5); Blood Urea Nitrogen 20 mg/dL (9-16); Calcium 9.4 mg/dL (8.4-10.2); Carbon Dioxide 23 mmol/L (22-29); Chloride 111 mmol/L (96-108); Creatinine Clr Calc Pharmacy 57.7; Estimated Glomerular Filt Rate > 60; Glucose Random 102 mg/dL (60-115); Lipase 25 U/L (8-78); Potassium 4.5 mmol/L (3.3-5.1); Sodium 143 mmol/L (135-145); Total Protein 6.8 g/dL (6.5-8.0)
[2025-02-24 13:09] LABS: D Dimer High Sensitivity 199 NG/ML
[2025-02-24 13:11] LABS: B Type Natriuretic Peptide 46 pg/mL (<100)
[2025-02-24 13:14] LABS: Troponin-I High Sensitivity < 2.7 ng/L (<3.5-17.0)
[2025-02-24 13:24] LABS: Bacteria Urine None Seen (None Seen); RBC Urine 0-2 /HPF (0-2); Squamous Epithelial Cell Urine 0-2 /HPF (0-2); UACC Culture Trigger YES
[2025-02-24 13:32] LABS: Influenza A PCR NEGATIVE (Negative); Influenza B PCR NEGATIVE (Negative); Resp Syncy Virus RNA Qual PCR NEGATIVE (Negative); SARS COV2 PCR INHOUSE NEGATIVE (Negative)
--- OUTSIDE RECORDS SUMMARY | 2025-02-24 14:44 | XMS_ITS | Patient Health Record ---
[facility] Address [address] [place] [address] Care Team Providers Care Case Management Assistant Name Role Phone Charlotte BELLA, Morenita Primary Care Provider Gloria Boyer Unavailable [phone] Allergies Allergen (clinical drug ingredient) Drug/Non Drug Allergy documented on EMR Reaction Allergy Type Onset Date Status pentosan polysulfate Elmiron Unknown Drug Allergy Active Reason For Referral No Information Medications Medication SIG (Take, Route, Frequency, Duration) Notes Start Date End Date Status Azo Tabs Active Colon Formula Active Chlorophyll Active Tasia Raymundo Active Social History Tobacco Use: Social History Observation Description Date Details (start date - stop date) Never Smoker NA - NA Tobacco Use/Smoking Question Answer Notes Are you a: nonsmoker Additional Findings: Tobacco Non-User Aggressive non-smoker,Current non-smoker Alcohol Screen Question Answer Notes Did you have a drink containing alcohol in the p ast year? No Points 0 Interpretation Negative Tobacco use other than smoking: Question Answer Notes Are you an other tobacco user? No Plan Of Treatment Pending Test Test Name Order Date [id number] Plate 03/11/2018 Insurance Providers Payer Name Payer Address Payer Phone Subscriber Number Group Number Insured Name Patient Relationship to Insured Coverage Start Date Coverage End Date [employer] [address] [place] [address] [phone] [id number] Mary Roca Self - patient is the insured Medical (General) History Medical History History ICD Code Back,Hip,and Knee pain Cataracts Gall bladder problems Numbness Sleep deprivation intestinal cystitis Surgical History Surgery Date(Month/Year) ovary and appendix 1988 cholecystectomy 2013
[2025-02-24 16:12] LABS: Troponin-I High Sensitivity < 2.7 ng/L (<3.5-17.0)
== END 2025-02-24 16:47 | disposition home or self-care (01) ==
PROVIDERS: Emergency Provider Emergency Medicine; PCP Internal Medicine
DX: R00.2 Palpitations (principal); Z03.818 Encounter for observation for suspected exposure to other biological agents ruled out; R53.82 Chronic fatigue, unspecified; Z79.899 Other long term (current) drug therapy
CPT/HCPCS: 0241U; 36415; 71045; 80048; 80076; 81001; 81003; 83690; 83880; 84484; 85025; 85379; 87086; 93005; 99283; 99285

== ENCOUNTER → 2025-02-24 11:51 | Outpatient (BNV) | payer MEDICARE, SELFPAY | PROVIDERS: Emergency Provider Emergency Medicine; PCP Internal Medicine; Visit Provider Internal Medicine Cardiovascular Disease | DX: I49.1 Atrial premature depolarization (principal) | CPT/HCPCS: 93010 ==

== ENCOUNTER → 2025-02-24 11:51 | Outpatient (BNV) | payer MEDICARE, SELFPAY | PROVIDERS: Emergency Provider Emergency Medicine; PCP Internal Medicine; Visit Provider Radiology Diagnostic Radiology | DX: R00.2 Palpitations (principal) | CPT/HCPCS: 71045 ==

== ENCOUNTER 2025-03-17 14:40 | Outpatient (AMB) | payer OTHER, SELFPAY ==
[2025-03-17 14:46] VITALS: BP 128/84; PULSE 63; TEMP 36.6; O2SAT 98; BMI 20.1
--- NOTE | 2025-03-17 14:46 | MHC.PC.OV ---
Vital Signs 03/17/25 14:46 Height 5 ft 4 in Weight 117 lb BMI 20.1 BP 128/84 Blood Pressure Location Lt brachial Position Sitting Pulse 63 Pulse Source Pulse Oximeter Temp 97.8 F Temp Source Oral Pulse Oximetry (%) 98 Oxygen Delivery Method Room Air Intake Visit Reasons: PE Intake Note: pt coming in for PE Station Master Required: No Allergies No Known Allergies Allergy (Verified 03/17/25 16:30) Medication List - Last Reconciled 03/17/25 by KIMBERLY Gusman acetaminophen (Tylenol) 325 mg PO QID PRN Tobacco use date assessed: 03/17/25 Fall risk assessment: 2 + Falls in past year Last assessed Fall Risk: 03/17/25 Dental Screening Dental Screen Date: 03/17/25 Did you have a dental visit in the last 12 months?: Yes Did you have a dental problem in the last 6 months where you did not have access to dental care?: No Was dental information given to patient?: Patient has dentist [facility] Medical History Endometriosis Surgical History History of left oophorectomy History of cholecystectomy History of appendectomy Family History Father Stomach cancer Mother Colon cancer Substance use disorder Brother Substance use disorder Social History Household Members: None Housing: House Alcohol intake: never Patient Tobacco Use Status: Never used Tobacco e-Cigarette/Vaping Use: Never Used Second Hand Smoke Exposure: No service: No Current occupational status: retired Cognitive needs: No Hearing needs: No Vision needs: No Questionnaire PHQ-9 Over the last 2 weeks, how often have you been bothered by any of the following problems? 1. Little interest or pleasure in doing things: not at all 2. Feeling down, depressed, or hopeless: not at all 3. Trouble falling or staying asleep, or sleeping too much: not at all 4. Feeling tired or having little energy: several days 5. Poor appetite or overeating: not at all 6. Feeling bad about yourself - or that you are a failure or have let yourself or your family down: not at all 7. Trouble concentrating on things, such as reading the newspaper or watching television: not at all 8. Moving or speaking so slowly that other people could have noticed. Or the opposite - being so fidgety or restless that you have been moving around a lot more than usual: not at all 9. Thoughts that you would be better off or of hurting yourself in some way: not at all Total score: 1 Depression Screening Interpretation: Negative Depression Screening Done: Yes 40959 - PHQ-9 Billing: Yes Source: Developed by Drs. Manjinder Perez, Jessica Caceres, Jeff Savlador and colleagues, with an educational cristhian from [employer]. Thrive Questionnaire Date Thrive assessed: 03/17/25 I am a: Patient What is your living situation today?: I have a steady place to live Within the past 12 months, did the food you bought not last and you didn't have the money to get more?: Sometimes True Within the past 12 months, did you worry whether your food would run out before you got money to buy more?: Never true Do you have trouble paying for medicines?: I choose not to answer this question Do you have trouble getting transportation to medical appointments?: No Do you have trouble paying your heating and electricity bill?: Yes Do you have trouble taking care of your child, family member or friend?: No Do you have trouble with day-to-day activities such as bathing, preparing meals, shopping, managing finances, etc.?: No Are you currently unemployed and looking for a job?: No Are you interested in more education?: No Please select the resources that you would like help with: None Currently or been in a relationship where the following occur: I choose not to answer THRIVE Score: 2 AUDIT C Alcohol Use Questionnaire (AUDIT-C) 1. How often do you have a drink containing alcohol?: Never 3. How often do you have six or more drinks on one occasion?: Never Total Score: 0 Score Reviewed/Action Taken: Yes JESSI-7 AMB Questionnaire JESSI-7 Date JESSI - 7 assessed: 03/17/25 Feeling nervous, anxious, or on edge: 0 = Not at all Not being able to stop or control worryin = Not at all Worrying too much about different things: 0 = Not at all Trouble relaxin = Not at all Being so restless that it is hard to sit still: 0 = Not at all Becoming easily annoyed or irritable: 0 = Not at all Feeling afraid as if something awful might happen: 0 = Not at all Total JESSI-7 score (0-4 normal; 5-9 mild; 10-14 moderate; 15-21 severe): 0 Source: Developed by Drs. Manjinder Perez, Jessica Caceres, Jeff Salvador and colleagues, with an educational cristhian from [employer]. JESSI-7 Assessment Billing JESSI-7 Assessment Tool: JESSI-7 Assessment 18542 Physical exam (Primary Care) Vital Signs: Last Vital Signs Temp 97.8 F 03/17/25 14:46 Pulse 63 03/17/25 14:46 BP 128/84 03/17/25 14:46 Pulse Ox 98 03/17/25 14:46 Oxygen Delivery Method Room Air 03/17/25 14:46 BMI result Body Mass Index 20.1 Tobacco/Smoking Status: Tobacco use Status Tobacco use date assessed 03/17/25 03/17/25 14:52 Patient Tobacco Use Status Never used Tobacco 03/17/25 14:52 e-Cigarette/Vaping Use Never Used 03/17/25 14:52 PHQ-9: PHQ-9 Score PHQ-9: Total score 1 03/17/25 15:52 Depression Screening Interpretation: Negative Thrive Assessment: Date of Thrive Assessment Date Thrive assessed 03/17/25 03/17/25 14:52 Currently or been in a relationship where the following occur: I choose not to answer Immunizations Boostrix Tdap 2.5 Lf unit-8 mcg-5 Lf/0.5 mL intramuscular syringe Performing Provider: KIMBERLY Gusman Performing Location: [facility] [place] [facility] Administered by: Gurmeet Bowles CMA on 03/17/25 16:22 Dose Route Admin Location Dispensed Lot Number Expiration Date [facility] Float Operator 0.5 mL IM Left Deltoid 0.5 mL [id number] 10/30/26 [id number] [employer] Total Dispensed Waste 0.5 mL 0 % VIS Given Date VIS Provided VIS Publication Date 03/17/25 Single Vaccine 21 Eligibility Eligibility Date Funding Source Not [facility] Eligible 03/17/25 Private Coding Level of Care Code Est Pt Level 3 (64665) Est Pt Prev Care >65y(75986) Diagnoses Abnormal nerve conduction studies R94.130 Interstitial cystitis N30.10 Microscopic hematuria R31.29 Arthritis M19.90 Encounter for routine adult physical exam with abnormal findings Z00. Bloating R14.0 Vitamin D deficiency E55.9 Postmenopausal Z78.0 Additional Codes JESSI-7 Assessment Billing - JESSI-7 Assessment Tool: JESSI-7 Assessment 28569 ([id number]) PHQ-9 - 18229 - PHQ-9 Billing: Yes ([id number]) Assessment & Plan Assessment & Plan (1) Abnormal nerve conduction studies: Code(s): R94.130 - Abnormal response to nerve stimulation, unspecified Category: Medical (2) Interstitial cystitis: Code(s): N30.10 - Interstitial cystitis (chronic) without hematuria Category: Medical (3) Microscopic hematuria: Code(s): R31.29 - Other microscopic hematuria Category: Medical (4) Arthritis: Code(s): M19.90 - Unspecified osteoarthritis, unspecified site Category: Medical (5) Encounter for routine adult physical exam with abnormal findings: Code(s): Z00.01 - Encounter for general adult medical examination with abnormal findings Category: Medical (6) Bloating: Code(s): R14.0 - Abdominal distension (gaseous) Category: Medical (7) Vitamin D deficiency: Code(s): E55.9 - Vitamin D deficiency, unspecified Category: Medical (8) Postmenopausal: Code(s): Z78.0 - Asymptomatic menopausal state Category: Medical Plan . Orders: Orders MM screening mammo BI Today Z12.31 - Encounter for screening mammogram for malignant neoplasm of breast Cyclic Citrullinated Peptide Today M19.90 - Unspecified osteoarthritis, unspecified site Comprehensive [place]. Panel Fast Today Z00.01 - Encounter for general adult medical examination with abnormal findings UA CC w/rflx Micro + Cult Today Z00.01 - Encounter for general adult medical examination with abnormal findings Transglutaminase IgA Today R14.0 - Abdominal distension (gaseous) Celiac Disease Panel Today R14.0 - Abdominal distension (gaseous) XR DEXA axial skeleton Today E55.9 - Vitamin D deficiency, unspecified, Z78.0 - Asymptomatic menopausal state Rheumatoid Factor Today M19.90 - Unspecified osteoarthritis, unspecified site Complete Blood Count Auto Diff Today Z00.01 - Encounter for general adult medical examination with abnormal findings TSH reflex Free T4 Today Z00.01 - Encounter for general adult medical examination with abnormal findings Lipid Panel Today Z00.01 - Encounter for general adult medical examination with abnormal findings Transglutaminase Ab IgG Today R14.0 - Abdominal distension (gaseous) Endomysial IgA rflx Titer Today R14.0 - Abdominal distension (gaseous) Vitamin D 25-OH Total Today E55.9 - Vitamin D deficiency, unspecified TDaP Immunization Today Z23 - Encounter for immunization Referrals Urology Referral N30.10 - Interstitial cystitis (chronic) without hematuria, R31.29 - Other microscopic hematuria Rheumatology Referral M19.90 - Unspecified osteoarthritis, unspecified site Neurology Referral R94.130 - Abnormal response to nerve stimulation, unspecified
--- OUTSIDE RECORDS SUMMARY | 2025-03-17 15:11 | XMS_ITS | Patient Health Record ---
[facility] Address [address] [place] [address] Care Team Providers Care Immigration Guard Name Role Phone Charlotte BELLA, Morenita Primary Care Provider Gloria Boyer Unavailable [phone] Allergies Allergen (clinical drug ingredient) Drug/Non Drug [...] Treatment Pending Test Test Name Order Date [id number] Plate 03/11/2018 Insurance Providers Payer Name Payer Address Payer Phone Subscriber Number Group Number Insured Name Patient Relationship to Insured Coverage Start Date Coverage End Date [employer] [address] [place] [address] [phone] [id number] Mary Roca Self - patient is the insured Medical (General) History Medical History History ICD Code Back,Hip,and Knee pain Cataracts Gall bladder problems Numbness Sleep deprivation intestinal cystitis Surgical History Surgery Date(Month/Year) ovary and appendix 1988 cholecystectomy 2013
--- OUTSIDE RECORDS SUMMARY | 2025-03-17 15:12 | XMS_ITS | Patient Health Record ---
Author Organization [facility] Address [address] [place] [address] Care Team Providers Care Marine Rigger Name Role Phone Charlotte BELLA, Morenita Primary Care Provider Manjinder Araiza Unavailable [phone] Allergies Allergen (clinical drug ingredient) Drug/Non Drug Allergy documented on EMR Reaction Allergy Type Onset Date Status seasonal (uncoded) Unknown Allergy A ctive Reason For Referral No Information Medications Medication SIG (Take, Route, Frequency, Duration) Notes Start Date End Date Status Colyte with Flavor Packs 240 GM As directed--1-8 oz. glass every 15minutes until gone, consume within 4 hrs. Orally once for 1 day(s) 12/18/2012 Active Problems Problem Type SNOMED Code ICD Code Onset Dates Problem Status W/U Status Risk Notes Problem Blood in stool (648647831) Blood in stool (578.1) Active confirmed Problem Heme + stool (792.1) Active confirmed Plan Of Treatment Future Test Test Name Order Date COLONOSCOPY 12/18/2012 Insurance Providers Payer Name Payer Address Payer Phone Subscriber Number Group Number Insured Name Patient Relationship to Insured Coverage Start Date Coverage End Date [facility] [address] [place] [phone] [id number] IDA PEREZ Self - patient is the insured Medical (General) History Medical History History ICD Code Denies RI,DM,CVA,Lung disease,renal dise ase Sleep apnea-has a CPAP machine Arthritis in neck and hands Surgical History Surgery Date(Month/Year) appendectomy Right oopherectomy-told of endometriosis
== END 2025-03-17 16:28 | disposition home or self-care (01) ==
LOC: HO.HMCC 14:41
PROVIDERS: PCP Nurse Practitioner Family; Visit Provider Nurse Practitioner Family
DX: Z00.01 Encounter for general adult medical examination with abnormal findings (principal); R94.130 Abnormal response to nerve stimulation, unspecified; N30.10 Interstitial cystitis (chronic) without hematuria; R31.29 Other microscopic hematuria; M19.90 Unspecified osteoarthritis, unspecified site; R14.0 Abdominal distension (gaseous); E55.9 Vitamin D deficiency, unspecified; Z78.0 Asymptomatic menopausal state; Z23 Encounter for immunization

== ENCOUNTER → 2025-03-17 14:40 | Outpatient (BNVA) | payer OTHER, SELFPAY | PROVIDERS: PCP Nurse Practitioner Family; Visit Provider Nurse Practitioner Family | DX: Z00.01 Encounter for general adult medical examination with abnormal findings (principal); R94.130 Abnormal response to nerve stimulation, unspecified; R31.29 Other microscopic hematuria; N30.10 Interstitial cystitis (chronic) without hematuria; M19.90 Unspecified osteoarthritis, unspecified site; E55.9 Vitamin D deficiency, unspecified; R14.0 Abdominal distension (gaseous); Z78.0 Asymptomatic menopausal state; Z23 Encounter for immunization | CPT/HCPCS: 90471; 90715; 96127 ==

== ENCOUNTER 2025-04-01 09:28 | Outpatient (REF) | payer OTHER, SELFPAY ==
--- OUTSIDE RECORDS SUMMARY | 2025-04-01 10:06 | XMS_ITS | Patient Health Record ---
Author Organization [facility] Address [address] [place] [address] Care Team Providers Care Desktop Manager Name Role Phone Charlotte BELLA, Morenita Primary Care Provider Gloria Boyer Unavailable [phone] Allergies Allergen (clinical drug ingredient) Drug/Non Drug [...] Treatment Pending Test Test Name Order Date [id number] Plate 03/11/2018 Insurance Providers Payer Name Payer Address Payer Phone Subscriber Number Group Number Insured Name Patient Relationship to Insured Coverage Start Date Coverage End Date [employer]age [address] [place] [address] [id number] Mary Roca Self - patient is the insured Medical (General) History Medical History History ICD Code Back,Hip,and Knee pain Cataracts Gall bladder problems Numbness Sleep deprivation intestinal cystitis Surgical History Surgery Date(Month/Year) ovary and appendix 1988 cholecystectomy 2013
--- OUTSIDE RECORDS SUMMARY | 2025-04-01 10:06 | XMS_ITS | Clinical Summary ---
Author Organization [facility] Address [address] [place] [phone] Phone Care Team Providers Care Digital Marketing Strategist Name Role Phone Pcp, Unknown Primary Care Provider Unavailabl e Allergies No known active allergies Medications phenazopyridine (AZO URINARY PAIN RELIEF) 95 MG tabletIndicatio ns:prn Take 95 mg by mouth daily. Indications: prn Active L.ACIDOPHILUS/B .BIFIDUM,LONGUM (PROBIOTIC COLON SUPPORT ORAL)Indication s:2 at night everynight Take by mouth. Indications: 2 at night everynight Active Medication-Free TextIndications :colon support Indications: colon support Active docusate sodium (COLACE ORAL)Indication s:1-2 daily Take by mouth. Indications: 1-2 daily Active naproxen (NAPROSYN ORAL)Indication s:? dose one bid Take by mouth 2 (two) times a day. Indications: ? dose one bid Active amitriptyline (ELAVIL) 10 MG tablet 1 tab at HS 90 tablet Active Additional Information Patient taking differently: 5 mg, 1 tab at HS, Reported on 01/25/2021 diphenhydrAMINE (BENADRYL) 25 mg capsule Take 25 mg by mouth as needed for itching. Active cholecalciferol (CHOLECALCIFERO L) 400 unit tablet Take 400 Units by mouth daily. Active aloe vera 25 mg Cap Take by mouth. Activ e collagen, bovine, 100 % Powd Apply topically. 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 She has a lot of reasons for having fatigue I mean she has a lot of medical problems she gets interrupted sleep sometimes she feels depressed and depression on his own can cause fatigue. She may have physical reasons for having the fatigue. She has been worked up for autoimmune, rheumatological, infections, and metabolic problems. So far everything has been within the reference range. She wonders about adrenal insufficiency and cortisol levels and ACTH levels have been drawn which she has not done yet. I doubt that she will be adrenal insufficienct based on normal glucose levels and electrolytes and no evidence of hypotension. Nevertheless she should go through with doing the studies I will also add TSH and reflex free T4 for evaluation of hypothyroidism or hyperthyroidism which can also be associated with fatigue although my feeling is that she does not strike me as somebody who has these conditions either. There are not many other etiologies that can result in fatigue in terms of endocrine conditions. Based on electrolytes she does not appear to have any other metabolic condition and transaminases and renal function are within the reference range. 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 Abnormal gait 10/08/2017 Irritable bowel syndrome 10/08/2017 Mitral regurgitation 10/08/2017 Immunizations Immunization Administration Dates Next Due COVID-19 (Pre-07/01) Moderna Vaccine, mRNA, PF 12/15/2020,11/14/2020 Influenza High-Dose Quadriva lent Preservative Free IM 10/28/2021 Influenza High-Dose Trivalen t Preservative Free IM 06/30/2019,05/14/2018,06/10/2017,07/13,07/13/2015 Influenza Trivalent w/ Preservative IM 4,08/07/2012 Pneumococcal polysaccharide PPSV23 03/26/2018 Family History Medical History Relation Comments Cancer Brother 1 Diverticulitis Brother 2 No Known Problems Brother 3 Coronary artery disease Father No Known Problems Maternal Grandfather Colon cancer Maternal Grandmother Coronary artery disease Mother Stroke Mother Coronary artery disease Paternal Grandfather Diabetes Paternal Grandmother No Known Problems Sister 1 No Known Problems Sister 2 Relation Status Comments Brother 1 Brother 2 Alive Brother 3 Alive Father Maternal Grandfather Maternal Grandmother Mother Paternal Grandfather Paternal Grandmother Sister 1 Alive Sister 2 Alive Social History Tobacco Use Types Packs/Day Years Used Date Smoking Tobacco: Never Smokeless Tobacco: Never Alcohol Use Standard Drinks/Week Comments No 0 (1 standard drink = 0.6 oz pur e alcohol) Education Answer Date Recorded Are you interested in more education? Not on vesna e 01/04/2023 Are you concerned about learning? Not on file 01/04/2023 No 01/04/2023 No 01/04/2023 Digital Access Answer Date Recorded No 02/02/2023 No 02/02/2023 Reliable internet access at home? Not on file 02/02/2023 Device with a working camera? Not on file Comments Unknown Sex and Gender Information Value Date Recorded Sex Assigned at Not on file Legal Sex Female 10:08 PM EDT Gender Identity Not on file Sexual Orientation Not on file Last Filed Vital Signs Vital Sign Reading Time Taken Comments Blood Pressure 130/80 09/19/2018 1:42 PM EST Pulse 78 09/19/2018 1:42 PM EST Temperature 36.6 C (97.9 F) 09/19/2018 1:42 PM EST Respiratory Rate 16 09/19/2018 1:42 PM EST Oxygen Saturation 97% 09/19/2018 1:42 PM EST Inhaled Oxygen Concentration - - Weight 55.8 kg (123 lb) 09/19/2018 1:42 PM EST Height 161.3 cm (5' 3.5 ) 09/19/2018 1:42 PM EST Body Mass Index 21.44 09/19/2018 1:42 PM EST Plan of Treatment Health Maintenance Due Date Last Done Comments Adult Td,Tdap Booster 1945 LIPID PANEL 1945 ZOSTER VACCINES (1 of 2) 1995 PNEUMOCOCCAL VACCINES (50+ years) (2 of 2 - PCV) 03/26/2019 03/26/2018 DEPRESSION SCREENING 09/19/2019 09/19/2018, 10/08/2017 RSV VACCINE (1 - 1-dose 75+ series) 2020 COVID-19 VACCINE (4 - 2023-2 5 season) 2024 09/05/2021, 12/15/2020, 11/14/2020 OSTEOPOROSIS SCREENING INITI AL (ONE-TIME) Completed 11/06/2012 HEPATITIS C SCREENING Completed 01/13/2017 SMOKING STATUS SCREENING (On ce After 26 Yrs) Completed 01/25/2021 HEPATITIS A VACCINES Aged Out No long er eligible based on patient's age to complete this topic HIB VACCINES Aged Out No longer eligi ble based on patient's age to complete this topic MENINGOCOCCAL VACCINES (ACWY) Aged Out No longer eligible based on patient's age to complete this topic MENINGOCOCCAL VACCINES (B) Aged Out N o longer eligible based on patient's age to complete this topic Medical Devices Not on file Procedures Procedure Name Priority Date/Time Associated Diagnosis Comments OUTSIDE HEPATITIS C VIRUS SCREENING Routine 01/13/2017 OUTSIDE BONE DENSITY SCREENING Routine 11/06/2012 from Last 3 Months or Most Recently Relevant to Health Maintenance Results * Outside Hepatitis C Virus Screening (01/13/2017) Hepatitis C Screening - External Neg Historical Provider LAB BLOOD ORDERABLES Vanessa l Result * OUTSIDE BONE DENSITY SCREENING (11/06/2012) BONE DENSITY SCREENING - EXTERNAL normal Historical Provider HEALTH MAINTENANCE Edited Result - Final from Last 3 Months or Most Recently Relevant to Health Maintenance Insurance MEDICARE PART A & B [facility] MEDICARE REPLACEMENT MEDICARE PART A & B [facility] MEDICARE REPLACEMENT MEDICARE PART A & B [facility] MEDICARE REPLACEMENT MEDICARE PART A & B Member Subscriber Plan / Payer (Ef fective 2010-Present) Name:Mary Roca Member ID:[id number] Relation to Subscriber:Self Name:Mary Roca Subscriber ID:[id number] Payer ID:[id number] Group ID:Not on file Type:Medicare Address: [facility] [employer] [facility] [address] [place] [phone] [facility] MEDICARE REPLACEMENT MEDICARE PART A & B [facility] MEDICARE REPLACEMENT MEDICARE PART A & B [facility] MEDICARE REPLACEMENT MEDICARE PART A & B [facility] MEDICARE REPLACEMENT MEDICARE PART A & B Member Subscriber Plan / Payer (Ef fective 2010-Present) Name:Mary Roca Member ID:[id number] Relation to Subscriber:Self Name:Mary Roca Subscriber ID:[id number] Payer ID:[id number] Group ID:Not on file Type:Medicare Address: [facility] [employer] [facility] [employer] [facility] [address] [place] [phone] [facility] MEDICARE REPLACEMENT MEDICARE PART A & B [facility] MEDICARE REPLACEMENT Care Teams Digital Marketing Strategist Relationship Specialty Start Date End Date Pcp, Unknown PCP - General 03/05/23 Additional Source Comments The information contained in this document represents components of the legal health record. It is not the complete legal health record.[facility]
--- OUTSIDE RECORDS SUMMARY | 2025-04-01 10:06 | XMS_ITS | Patient Health Record ---
Author Organization [facility] Address [address] [place] [address] Care Team Providers Care Ticket Printer And Tagger Name Role Phone Charlotte BELLA, Morenita Primary Care Provider Manjinder Araiza Unavailable [phone] Allergies Allergen (clinical drug ingredient) Drug/Non Drug [...] Status Risk Notes Problem Blood in stool (404946336) Blood in stool (578.1) Active confirmed Problem Heme + stool (792.1) Active confirmed Plan Of Treatment Future Test Test Name Order Date COLONOSCOPY 12/18/2012 Insurance Providers Payer Name Payer Address Payer Phone Subscriber Number Group Number Insured Name Patient Relationship to Insured Coverage Start Date Coverage End Date [facility] [address] [place] [phone] [id number] IDA PEREZ Self - patient is the insured Medical (General) History Medical History History ICD Code Denies [place],DM,CVA,Lung disease,renal dise ase Sleep apnea-has a CPAP machine Arthritis in neck and hands Surgical History Surgery Date(Month/Year) appendectomy Right oopherectomy-told of endometriosis
[2025-04-01 13:13] LABS: MANUAL DIFF FLAG NO
[2025-04-01 13:28] LABS: Hematocrit 41.3 % (37.0-47.0); Hemoglobin 13.5 g/dl (12.0-16.0); Imm Gran Abs Auto 0.01 X10*3/uL (0.00-0.03); Imm Gran Pct Auto 0.2 % (0.0-0.4); Lymphocytes Absolute Auto 1.6 X10*3/uL (1.2-4.9); Mean Corpuscular HGB Conc 32.7 g/dl (31.0-35.0); Mean Corpuscular Hemoglobin 29.5 pg (27.0-33.0); Mean Corpuscular Volume 90.2 fL (80.0-98.0); NRBC Abs Auto 0.000 X10*3/uL (0.0-0.012); NRBC Pct Auto 0.0 /100WBC (0.0-0.2); Platelet Count 281 X10*3/uL (160-400); Red Blood Count 4.58 X10*6/uL (4.20-5.50); White Blood Count 5.9 X10*3/uL (4.8-10.8)
[2025-04-01 13:48] LABS: Alanine Aminotransferase 21 U/L (0-31); Albumin Level 4.7 g/dL (3.5-5.0); Alkaline Phosphatase 64 U/L (39-117); Anion Gap 12 (12-20); Aspartate Amino Transferase 26 U/L (5-31); Blood Urea Nitrogen 19 mg/dL (9-16); Calcium 9.1 mg/dL (8.4-10.2); Carbon Dioxide 28 mmol/L (22-29); Chloride 104 mmol/L (96-108); Cholesterol 194 mg/dL (<200); Estimated Glomerular Filt Rate > 60; HDL Cholesterol 73 mg/dL (>40); Potassium 4.2 mmol/L (3.3-5.1); Sodium 140 mmol/L (135-145); Total Protein 6.9 g/dL (6.5-8.0); Triglycerides 85 mg/dL (<150)
[2025-04-01 13:50] LABS: Appearance Urine Clear; Glucose Urine UA Negative (Negative); PH 6.0 (5.0-9.0); Specific Gravity - Urine <= 1.005 (1.005-1.025); UMIC TRIGGER UACC YES
[2025-04-02 22:19] LABS: Immunoglobulin A 56 mg/dL (70-320); Transglutaminase Ab IgG <1.0 U/mL
== END 2025-04-01 09:29 | disposition home or self-care (01) ==
LOC: HO.HMGCLDS 09:28
PROVIDERS: PCP Nurse Practitioner Family; Visit Provider Nurse Practitioner Family
DX: Z00.01 Encounter for general adult medical examination with abnormal findings (principal); R14.0 Abdominal distension (gaseous); E55.9 Vitamin D deficiency, unspecified; M19.90 Unspecified osteoarthritis, unspecified site
CPT/HCPCS: 36415; 80053; 80061; 81001; 82306; 82784; 84443; 85025; 86200; 86231; 86364; 86431

== ENCOUNTER 2025-06-17 15:16 | Outpatient (AMB) | payer OTHER, SELFPAY ==
--- NOTE | 2025-06-17 15:25 | MHC.OFFVIS ---
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 Colon. She has a past medical history of endometriosis and interstitial cystitis. She presents to the office today as a new patient for microscopic hematuria. In discussion with the patient today she reports a longstanding history of interstitial cystitis and previously followed up with Dr. Meg Woodson. She reports having had a cystoscopy under sedation and was diagnosed with interstitial cystitis many years ago and has since been undergoing surveillance monitoring. She reports she also followed up with a holistic provider and has trialed many [id number] remedies such as PEA. She reports feeling her triggers for interstitial cystitis are stress. She reports typically she experiences urinary urgency, urinary frequency, and nocturia. She reports bladder pain and pressure she had been experiencing many years ago has since subsided. We did discuss at length potential causes of interstitial cystitis as well as further treatment options and risks and benefits of these treatment options. In office urinalysis results reviewed with the patient today trace microscopic hematuria noted otherwise within normal limits. PVR 211ml's. We did discussed obtaining retroperitoneal ultrasound for further assessment evaluation however patient declines at this time. She does feel she is managing lower urinary tract symptoms well independently in although she experiences these symptoms she does feel she is managing them well. We did discuss incomplete bladder emptying. All questions were answered. She otherwise offers no other issues or concerns at this time. [facility] Medical History Endometriosis Surgical History History of left oophorectomy History of cholecystectomy History of appendectomy Family History Father Stomach cancer Mother Colon cancer Substance use disorder Brother Substance use disorder Social History Household Members: None Housing: House Alcohol intake: never Patient Tobacco Use Status: Never used Tobacco e-Cigarette/Vaping Use: Never Used Second Hand Smoke Exposure: No service: No Current occupational status: retired Cognitive needs: No Hearing needs: No Vision needs: No Review of Systems Const All systems reviewed & are unremarkable except as noted in HPI and below Physical Exam Const General: cooperative, healthy appearing, comfortable, no acute distress, well developed, alert and awake Orientation/consciousness: patient oriented x3 Limitations: no limitations HEENT Head: Yes normal to inspection, Yes normocephalic and Yes atraumatic Ears: hearing grossly normal bilaterally Eyes General: appearance normal, both eyes and all related structures Neck Neck: Yes normal visual inspection and Yes trachea midline Chest Chest palpation & inspection: normal inspection of the chest Resp Effort & Inspection: normal respiratory effort and able to speak in complete sentences Cardio Rate: regular rate GI Inspection: Yes normal to inspection General: Yes no CVA tenderness Back/Spine/Pelvis Back: no CVA tenderness Skin General skin exam: no rashes or lesions noted Neuro General: patient oriented x3 Extrem General: Yes normal to inspection Psych Appearance: grossly normal and well kempt Mental Status: mental status grossly normal Speech and movement: Normal speech and movement present and Clear speech present Affect: normal affect Attitude: cooperative Thought process: Normal thought process present Thought content: Normal thought content present Insight: Fair insight present (Psych) Judgement: Fair judgement present (Psych) Office Procedures Post Void Residual Post Residual Void Post Void Residual (PVR): 211 25552-Phsq Void Residual by ultrasound Results AMB Urinalysis, Automated UA Leukoctes 0 Marci/uL Last Edit by LAMAR Jacob on 06/17/25 15:34 UA Nitrite Last Edit by LAMAR Jacob on 06/17/25 15:34 UA Urobilinogen 0.2 mg/dL Last Edit by LAMAR Jacob on 06/17/25 15:34 UA Protein 0 mg/dL Last Edit by LAMAR Jacob on 06/17/25 15:34 UA pH 6.0 Last Edit by LAMAR Jacob on 06/17/25 15:34 UA Blood 10 Rowdy/uL Last Edit by LAMAR Jacob on 06/17/25 15:34 UA Specific [place] 1.005 Last Edit by LAMAR Jacob on 06/17/25 15:34 UA Ketone Last Edit by LAMAR Jacob on 06/17/25 15:34 UA Bilirubin 0 mg/dL Last Edit by LAMAR Jacob on 06/17/25 15:34 UA Glucose 0 mg/dL Last Edit by LAMAR Jacob on 06/17/25 15:34 Results Reviewed Results Reviewed: Laboratory Last Values Urine pH (Auto) 6.0 06/17/25 15:33 Specific [place] (Auto) 1.005 06/17/25 15:33 Urine Protein (Auto) 0 mg/dL 06/17/25 15:33 Glucose (UA)(Auto) 0 mg/dL 06/17/25 15:33 Urine Blood (Auto) 10 Rowdy/uL 06/17/25 15:33 Urine Bilirubin (Auto) 0 mg/dL 06/17/25 15:33 Urine Urobilinogen (Auto) 0.2 mg/dL 06/17/25 15:33 Leukocyte Esterase (Auto) 0 Marci/uL 06/17/25 15:33 Assessment & Plan Assessment & Plan (1) Microscopic hematuria: Code(s): R31.29 - Other microscopic hematuria Category: Medical (2) Interstitial cystitis: Code(s): N30.10 - Interstitial cystitis (chronic) without hematuria Category: Medical (3) Incomplete bladder emptying: Code(s): R33.9 - Retention of urine, unspecified Category: Medical Plan In office urinalysis results reviewed with the patient today; as noted above; will send for urine cytology We discussed obtaining retroperitoneal ultrasound however she would like to await at this time. We did discussed bladder triggers and irritants. We discussed interstitial cystitis treatment options and risks and benefits of these treatment options. We discussed healthy bathroom behaviors; information was provided. We did discuss attempting to double void to assist with bladder emptying. We did discussed potential causes of incomplete bladder emptying as well as further treatment options and risks and benefits of these treatment options. All questions were answered. Follow-up in 3-4 months; or sooner with any issues, concerns, and or questions. Orders: Orders AMB Post Void Residual by ultrasound Today R31.29 - Other microscopic hematuria AMB Urinalysis Automated Today Z13.9 - Encounter for screening, unspecified Urine Cytology Today N39.0 - Urinary tract infection, site not specified Patient Instructions: The patient had an opportunity to ask questions regarding the treatment plan. All questions were answered. Physical exam, labs, and imaging were discussed and reviewed in detail. As well as risks, benefits, and discussion of treatment choices. No major barriers to understanding were identified. The patient expressed understanding and agreement with the above treatment plan. The patient was made aware they should contact our office by phone for worsening of their current condition, the appearance of new symptoms, or with any questions or concerns. Compliance is encouraged with any medications and follow up testing that is ordered. It is a privilege to be allowed the opportunity to participate in? your urological care.? Again, if you have any questions or concerns If you have any questions or concerns please do not hesitate to contact me. The office is [phone]. This note is constructed using voice recognition software. While every effort has been made to ensure accuracy tariff compiling clerk errors may have been included. Yours sincerely, KIMBERLY Arevalo Coding Level of Care Code New Pt Level 3 (41546) Diagnoses Microscopic hematuria R31.29 Interstitial cystitis N30.10 Incomplete bladder emptying R33.9 CPT Codes Post Residual Void - PVR CPT Code: 32685-Wvzf Void Residual by ultrasound ([id number])
== END 2025-06-17 16:10 | disposition home or self-care (01) ==
LOC: HO.HUSH 15:17
PROVIDERS: PCP Nurse Practitioner Family; Visit Provider Nurse Practitioner Family
DX: R31.29 Other microscopic hematuria (principal); N30.10 Interstitial cystitis (chronic) without hematuria; R33.9 Retention of urine, unspecified; Z13.9 Encounter for screening, unspecified
CPT/HCPCS: 99203

== ENCOUNTER 2025-06-17 15:16 | Outpatient (REF) | payer OTHER, SELFPAY | END 2025-06-17 15:17 | disposition home or self-care (01) | LOC: HO.LNP 15:16 | PROVIDERS: PCP Nurse Practitioner Family; Visit Provider Nurse Practitioner Family | DX: R31.29 Other microscopic hematuria (principal); N30.10 Interstitial cystitis (chronic) without hematuria; R33.9 Retention of urine, unspecified; Z13.89 Encounter for screening for other disorder | CPT/HCPCS: 51798; 81003; 88112 ==

== ENCOUNTER 2025-07-06 12:04 | Outpatient (REF) | payer OTHER, SELFPAY ==
[2025-07-06 15:32] LABS: Folate 8.4 ng/mL (> or = 4.0); Vitamin B12 457 pg/mL (200-900)
[2025-07-07 21:24] LABS: Antibody to SS-A Antigen <1.0 NEG AI (<1.0 NEG); Antibody to SS-B Antigen <1.0 NEG AI (<1.0 NEG)
[2025-07-07 21:28] LABS: Prot Elec - Albumin 4.6 g/dL (3.8-4.8); Prot Elec - Alpha1 0.3 g/dL (0.2-0.3); Prot Elec - Alpha2 0.7 g/dL (0.5-0.9); Prot Elec - Beta 1 0.5 g/dL (0.4-0.6); Prot Elec - Beta 2 0.3 g/dL (0.2-0.5); Prot Elec - Gamma 0.6 g/dL (0.8-1.7); Prot Elec - Total Protein 7.0 g/dL (6.1-8.1)
[2025-08-06 13:54] LABS: Arsenic, Blood <3 mcg/L (<23); Lead, Blood <1.0 mcg/dL (<3.5); Mercury, Blood <4 mcg/L (<=10)
== END 2025-07-06 12:05 | disposition home or self-care (01) ==
LOC: HO.LAB 12:04
PROVIDERS: PCP Nurse Practitioner Family; Visit Provider Nurse Practitioner
DX: G57.90 Unspecified mononeuropathy of unspecified lower limb (principal); R94.130 Abnormal response to nerve stimulation, unspecified; Z13.1 Encounter for screening for diabetes mellitus
CPT/HCPCS: 36415; 82175; 82525; 82607; 82746; 82784; 83036; 83655; 83825; 83921; 84165; 84446; 86235; 86334

== ENCOUNTER 2025-07-06 12:04 | Outpatient (AMB) | payer OTHER, SELFPAY ==
--- NOTE | 2025-07-06 12:07 | A.OFFVIS_ITS ---
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 According to primary care notes from March of 2025, she had a previously abnormal EMG study and had been referred to Neurology in 2022 but did not attend her appointment. 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 Today Mary reports that she started having symptoms of neuropathy over the course of the last few years. She initially had sensations that she was stepping on glass . After the initial painful sensations she experienced to the bottoms of her feet she started to have abnormal sensations as if she has socks on when she does not have socks. Symptoms are equal on both sides and are generally worse to the dorsum of her feet and extend to the top of the foot but stops about 1 in from the ankle on both sides. She does note that her balance has been affected due to change in her sensation. She feels that sometimes she walks as if she is ?drunk?. She has had 2 remote falls because of her imbalance but has not had any recent falls and falls are not recurrent. She feels that she now walks with an abundance of caution. She denies any weakness to her legs, she does not have any significant paresthesias to her upper extremities though notes some intermittent numbness to the very distal ends of her upper extremities bilaterally from time to time but nothing consistent. She denies any pain to her upper extremities. Her feet are no longer painful. She does not have any low back pain or radicular symptoms. Leading up to symptom onset, she had no changes to her health or triggering factors that she is aware of. 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 There was no electrodiagnostic evidence for a lumbosacral plexopathy or lumbar radiculopathy. Related lab workup: TSH and vitamin D levels [place] [facility] Medical History Endometriosis Surgical History History of left oophorectomy History of cholecystectomy History of appendectomy Family History Father Stomach cancer Mother Colon cancer Substance use disorder Brother Substance use disorder Social History Household Members: None Housing: House Alcohol intake: never Patient Tobacco Use Status: Never used Tobacco e-Cigarette/Vaping Use: Never Used Second Hand Smoke Exposure: No service: No Current occupational status: retired Cognitive needs: No Hearing needs: No Vision needs: No Review of Systems Const All systems reviewed & are unremarkable except as noted in HPI and below Neuro Reports Sensory deficit (Neuro) (Decreased sensation to filament and vibratory sensation to the distal LBLE) Physical Exam Const General: cooperative, healthy appearing, comfortable and no acute distress Nutritional Appearance: well nourished Orientation/consciousness: patient oriented x3 Limitations: no limitations HEENT Head: Yes normal to inspection and Yes normocephalic Eyes General: appearance normal, both eyes and all related structures Visual Sherwood: normal visual sherwood by confrontation Alignment and Position: alignment normal Periorbital: periorbital findings normal Eyelids: Yes eyelids normal Conjunctivae: conjunctivae normal Sclerae: sclerae normal Neuro General: patient oriented x3 and tone normal Cranial nerves: Yes CN's II-XII intact bilaterally and Yes Facial sensation intact/muscles of mastication intact Cognition (Neuro): normal cognition Gait exam (Neuro): Wide-based gait present and Other gait observations present (Appears stiff) Motor exam (neuro): 5/5 motor strength present throughout and no tremor noted Sensory Exam: Sensory deficit (Neuro) (Decreased sensation to filament and vibratory sensation to the distal LBLE) Deep tendon reflexes (DTR's): Right triceps reflex intensity grade: 2+, Left t riceps reflex intensity grade: 2+, Rt Biceps (C5, C6): 2+, Left biceps reflex intensity grade: 2+, Right brachioradialis reflex intensity grade: 2+, Left brachioradialis reflex intensity grade: 2+, Right patellar reflex intensity grade: 3+, Left patellar reflex intensity grade: 3+, Right ankle reflex intensity grade: 3+ and Left ankle reflex intensity grade: 3+ Plantar Reflex Responses: downgoing: bilateral Coordination: [id number] test normal Romberg Test: Positive Pupils: Normal pupillary reactivity/response: bilateral Psych Appearance: grossly normal Mental Status: mental status grossly normal Speech and movement: Normal speech and movement present and Clear speech present Affect: normal affect Attitude: cooperative Thought process: Normal thought process present Thought content: Normal thought content present Insight: Good insight present (Psych) Judgement: Good judgement present (Psych) Assessment & Plan Assessment & Plan (1) Lower extremity neuropathy: Code(s): G57.90 - Unspecified mononeuropathy of unspecified lower limb Category: Medical Plan: . (2) Abnormal nerve conduction studies: Code(s): R94.130 - Abnormal response to nerve stimulation, unspecified Category: Medical Plan: . 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 Her exam today reveals some sensory deficits to the distal ends of her lower extremities relatively equal on both sides. She does not demonstrate any motor weakness. She also has abnormal reflexes (3+ patellar and Achilles bilaterally) which is not unexpected in the setting of a peripheral neuropathy. He however does not have any ankle clonus, positive Babinski, or Ever's sign on exam. Her gait is slightly widened at the base and unsteady appearing somewhat stiff. She does not have any red flags in her history to clearly explain her neuropathy. I will start with a typical neuropathy lab workup. We could also consider C-spine imaging given her hyperreflexia and poor balance though this would not clearly explain her positive EMG study. -neuropathy lab workup -consider C-spine imaging given her hyperreflexia and poor balance -follow up in 2 weeks after labs have been completed and resulted Orders: Orders Folate Today G5. - Unspecified mononeuropathy of unspecified lower limb, R94.130 - Abnormal response to nerve stimulation, unspecified Immunofixation Pnl, Serum Today G5 - Unspecified mononeuropathy of unspecified lower limb, R94.130 - Abnormal response to nerve stimulation, unspecified Protein Electrophoresis,Ran Ur Today - Unspecified mononeuropathy of unspecified lower limb, R94.130 - Abnormal response to nerve stimulation, unspecified Vitamin E Today - Unspecified mononeuropathy of unspecified lower limb, R94.130 - Abnormal response to nerve stimulation, unspecified Copper, serum Today - Unspecified mononeuropathy of unspecified lower limb, R94.130 - Abnormal response to nerve stimulation, unspecified Hemoglobin A1c Today - Unspecified mononeuropathy of unspecified lower limb, R94.130 - Abnormal response to nerve stimulation, unspecified Heavy Metals Screen Blood Today - Unspecified mononeuropathy of un specified lower limb, R94.130 - Abnormal response to nerve stimulation, unspecified Methylmalonic Acid Today G5. - Unspecified mononeuropathy of unspecified lower limb, R94.130 - Abnormal response to nerve stimulation, unspecified Sjogren's Antibodies Today . - Unspecified mononeuropathy of unspecified lower limb, R94.130 - Abnormal response to nerve stimulation, unspecified Protein Electrophoresis, Serum Today - Unspecified mononeuropathy of unspecified lower limb, R94.130 - Abnormal response to nerve stimulation, unspecified Vitamin B12 Today . - Unspecified mononeuropathy of unspecified lower limb, R94.130 - Abnormal response to nerve stimulation, unspecified Coding Level of Care Code New Pt Level 4 (56067) Diagnoses Lower extremity neuropathy Abnormal nerve conduction studies R94.130
[2025-07-06 12:16] VITALS: BP 138/78; PULSE 66; RESP 16; O2SAT 99; BMI 20.4
--- OUTSIDE RECORDS SUMMARY | 2025-07-06 15:25 | XMS_ITS | Patient Health Record ---
[facility] Address [address] [place] [address] Care Team Providers Care Commercial Artist Lettering Name Role Phone Charlotte BELLA, Morenita Primary Care Provider Gloria Boyer Unavailable [phone] Allergies Allergen (clinical drug ingredient) Drug/Non Drug [...] Treatment Pending Test Test Name Order Date 60194-Xztyvtqp Plate 03/11/2018 Insurance Providers Payer Name Payer Address Payer Phone Subscriber Number Group Number Insured Name Patient Relationship to Insured Coverage Start Date Coverage End Date [employer] [place] [employer] [address] [place] [address] [id number] Mary Roca Self - patient is the insured Medical (General) History Medical History History ICD Code Back,Hip,and Knee pain Cataracts Gall bladder problems Numbness Sleep deprivation intestinal cystitis Surgical History Surgery Date(Month/Year) ovary and appendix 1988 cholecystectomy 2013
--- OUTSIDE RECORDS SUMMARY | 2025-07-06 15:25 | XMS_ITS | Patient Health Record ---
Author Organization [facility] Address [address] [place] [address] Care Team Providers Care Gauge Controller Name Role Phone Charlotte BELLA, Morenita Primary Care Provider Manjinder Araiza Unavailable [phone] Allergies Allergen (clinical drug ingredient) Drug/Non Drug Allergy documented on EMR Reaction Allergy Type Onset Date Status seasonal (uncoded) Unknown Allergy A ctive Reason For Referral No Information Medications Medication SIG (Take, Route, Frequency, Duration) Notes Start Date End Date Status Colyte with Flavor Packs 240 GM As directed--1-8 oz. glass every 15minutes until gone, consume within 4 hrs. Orally once; Duration: 1 day(s) 12/18/2012 Active Problems Problem Type SNOMED Code ICD Code Onset Dates Problem Status W/U Status Risk Notes Problem Blood in stool (547227109) Blood in stool (578.1) Active confirmed Problem Feces contents abnormal (267554420) Heme + stool (792.1) Active confirmed Plan Of Treatment Future Test Test Name Order Date COLONOSCOPY 12/18/2012 Insurance Providers Payer Name Payer Address Payer Phone Subscriber Number Group Number Insured Name Patient Relationship to Insured Coverage Start Date Coverage End Date [facility] [address] [facility] [place] [phone] [id number] IDA PEREZ Self - patient is the insured Medical (General) History Medical History History ICD Code Denies [place],DM,CVA,Lung disease,renal dise ase Sleep apnea-has a CPAP machine Arthritis in neck and hands Surgical History Surgery Date(Month/Year) appendectomy Right oopherectomy-told of endometriosis
--- OUTSIDE RECORDS SUMMARY | 2025-07-06 15:26 | XMS_ITS | Clinical Summary ---
Author Organization [facility] Address [address] [place] [id number] Phone Care Team Providers Care Biomedical Engineering Technician Name Role Phone Pcp, Unknown Primary Care [...] COVID-19 (Pre-07/01) Moderna Vaccine, mRNA, PF 12/15/2020,11/14/2020 INFLUENZA, SPLIT VIRUS, TRIV ALENT W/ PRESERVATIVE IM 06/22/2014,08/07/2012 Influenza High-Dose Quadriva lent Preservative Free IM 10/28/2021 Influenza High-Dose Trivalen t Preservative Free IM 06/30/2019,05/14/2018,06/10/2017,07/13,07/13/2015 Pneumococcal polysaccharide PPSV23 03/26/2018 Family History Medical [...] PCV) 03/26/2019 03/26/2018 DEPRESSION SCREENING 09/19/2019 09/19/2018, 10/08/19 18 RSV VACCINE (1 - 1-dose 75+ series) 2020 INFLUENZA VACCINE (#1) 2025 2, 06/30/2019, 05/14/2018, Additional history exists COVID-19 VACCINE (2024- season) 2025 09/05/2021, 12/15/2020, 11/14/2020 OSTEOPOROSIS SCREENING INITIAL (ONE-TIME) Completed 11/06/2012 HEPATITIS C SCREENING Completed 01/13/2017 SMOKING STATUS SCREENING (Once After 26 Yrs) Completed 01/25/2021 HEPATITIS A [...] Maintenance Insurance MEDICARE PART A & B [facility] MEDICARE REPLACEMENT MEDICARE PART A & B [facility] MEDICARE REPLACEMENT MEDICARE PART A & B [facility] MEDICARE REPLACEMENT [place] [id number] MEDICARE PART A & B [facility] MEDICARE REPLACEMENT MEDICARE PART A & B [facility] MEDICARE REPLACEMENT MEDICARE PART A & B [facility] MEDICARE REPLACEMENT MEDICARE PART A & B [facility] MEDICARE REPLACEMENT [place] [id number] MEDICARE PART A & B [facility] MEDICARE REPLACEMENT MEDICARE PART A & B [facility] MEDICARE REPLACEMENT Care Teams Biomedical Engineering Technician Relationship Specialty Start Date End Date Pcp, Unknown PCP - General 03/05/23 Additional Source Comments The information contained in this document represents components of the legal health record. It is not the complete legal health record.[facility]
== END 2025-07-06 12:48 | disposition home or self-care (01) ==
LOC: HO.HSM 12:04
PROVIDERS: PCP Nurse Practitioner Family; Visit Provider Nurse Practitioner
DX: G57.90 Unspecified mononeuropathy of unspecified lower limb (principal); R94.130 Abnormal response to nerve stimulation, unspecified
CPT/HCPCS: 99204

== ENCOUNTER 2025-07-19 14:24 | Outpatient (REF) | payer OTHER, SELFPAY ==
[2025-07-19 14:46] LABS: Appearance Urine Clear; Glucose Urine UA Negative (Negative); PH 5.5 (5.0-9.0); Specific Gravity - Urine 1.010 (1.005-1.025); UMIC TRIGGER UACC YES
[2025-07-19 14:50] LABS: UACC Culture Trigger YES
--- OUTSIDE RECORDS SUMMARY | 2025-07-19 16:46 | XMS_ITS | Clinical Summary ---
Author Organization [facility] Address [address] [place] [phone] Phone Care Team Providers Care Government Affairs Fellow Name Role Phone Pcp, Unknown Primary Care [...] Insurance MEDICARE PART A & B [facility] [place] [address] MEDICARE PART A & B [facility] MEDICARE REPLACEMENT MEDICARE PART A & B [facility] MEDICARE REPLACEMENT [place] [id number] MEDICARE PART A & B [facility] MEDICARE REPLACEMENT MEDICARE PART A & B [facility] [address] MEDICARE PART A & B [facility] MEDICARE REPLACEMENT MEDICARE PART A & B [facility] MEDICARE REPLACEMENT [place] [id number] MEDICARE PART A & B [facility] MEDICARE REPLACEMENT MEDICARE PART A & B [facility] MEDICARE REPLACEMENT Care Teams Government Affairs Fellow Relationship Specialty Start Date End Date Pcp, Unknown PCP - General 03/05/23 Additional Source Comments The information contained in this document represents components of the legal health record. It is not the complete legal health record.[facility]
[2025-07-22 10:29] LABS: PEU-Protein Creat Ratio Rand 0.108 (0.024-0.184); PEU-Rand. Prot/Creat Ratio 108 mg/g creat (24-184); PEU-Random Ur. Gamma Globulin 0 %; PEU-Random Urine A1 Globulin 0 %; PEU-Random Urine A2 Globulin 0 %; PEU-Random Urine Albumin 100 %; PEU-Random Urine Beta Globulin 0 %; PEU-Random Urine Creatinine 37 mg/dL (20-275); PEU-Random Urine Protein 4 mg/dL (5-24)
== END 2025-07-19 14:25 | disposition home or self-care (01) ==
LOC: HO.LNP 14:24
PROVIDERS: Visit Provider Nurse Practitioner
DX: Z13.89 Encounter for screening for other disorder (principal)
CPT/HCPCS: 81001; 82570; 84156; 84166; 87086